=== PATIENT | female | born 1990 | race African-American/Black ===

== ENCOUNTER 2020-04-01 08:46 | Outpatient (CLI) | payer OTHER, SELFPAY ==
--- NOTE | ~2020-04-01 | US_ITS ---
EXAMINATION: US pelvic complete w TV DATE: 04/01/2020 09:36 INDICATION: Irregular periods TECHNIQUE: Multiple transabdominal and endovaginal sonographic images of the pelvis were obtained. COMPARISON: None. FINDINGS: The uterus measures 8.8 x 4.0 x 5.8 cm. The endometrial complex measures 17 mm in thickness at the f undus where there is a 7 mm round fluid collection which could represent a gestational sac which util izing mean diameter would yield an estimated gestational age of 5 weeks and 2 days. There appears be a double decidua sign but no evident yolk sac or pole for definitive determination. Distal to t he suspected gestational sac the endometrial complex measures up to 4 mm in thickness. The right ovar y measures 2.6 x 1.9 x 1.9 cm. The left ovary measures 2.8 x 2.8 x 2.5 cm cm. There is a 1.6 similar cyst, possibly a corpus luteum cyst in the left ovary. Vascular flow identified at both ovaries on co aidee Doppler. There is no free fluid in the pelvis. IMPRESSION: 1. 7 mm likely gestational sac without evident yolk sac or pole suggestive of an early pregnanc y with likely corresponding corpus luteum cyst in the left ovary. Correlate with beta hCG levels. Reviewed, dictated and finalized at location A. IMPRESSION: 1. 7 mm likely gestational sac without evident yolk sac or pole suggestiv e of an early with likely corresponding corpus luteum cyst in the lef t ovary. Correlate with beta hCG levels.
== END 2020-04-01 08:47 | disposition home or self-care (01) ==
PROVIDERS: PCP Nurse Practitioner Family; Visit Provider Obstetrics & Gynecology
DX: Z34.90 Encounter for supervision of normal pregnancy, unspecified, unspecified trimester (principal); N92.6 Irregular menstruation, unspecified
CPT/HCPCS: 36415; 76830; 76856; 84702

== ENCOUNTER 2020-04-03 10:40 | Outpatient (CLI) | payer OTHER, SELFPAY | END 2020-04-03 10:41 | disposition home or self-care (01) | PROVIDERS: PCP Nurse Practitioner Family; Visit Provider Obstetrics & Gynecology | DX: Z34.90 Encounter for supervision of normal pregnancy, unspecified, unspecified trimester (principal) | CPT/HCPCS: 36415; 84702 ==

== ENCOUNTER 2020-04-18 10:19 | Outpatient (CLI) | payer OTHER, SELFPAY ==
--- NOTE | ~2020-04-18 | US_ITS ---
EXAMINATION: US OB <= 14 weeks fetus DATE: 04/18/2020 10:58 INDICATION: First trimester dating TECHNIQUE: Real-time pelvic transabdominal and transvaginal ultrasound was performed. COMPARISON: 04/01/2020 FINDINGS: The uterus measures 9.3 x 6.5 x 5.2 cm. There is an intrauterine gestational sac. A yolk s ac is identified. heart motion is identified measuring 141 beats per minute (bpm) by M-mode Dop pler. The crown rump length measures 1.4 cm , which correlates with an estimated gestational ag e of 7 weeks and 6 day(s) (+/-) 4 day(s). The right ovary measures 3.0 x 1.9 x 2.0 cm. The left ovary measures 4.7 x 3.2 x 3.7 cm. There is nor mal vascular flow in the ovaries. There is no free fluid in the pelvis. IMPRESSION: 1. Live intrauterine with an estimated gestational age of 7 weeks and 6 day(s) (+/-) 4 day( s) and an estimated delivery date of 11/29/2020. Reviewed, dictated and finalized at location A. IMPRESSION: 1. Live intrauterine with an estimated gestational age of 7 weeks and 6 day(s) (+/-) 4 day(s) and an estimated delivery date of 11/29/2020.
== END 2020-04-18 10:20 | disposition home or self-care (01) ==
LOC: ANHIMG 10:25
PROVIDERS: PCP Nurse Practitioner Family; Visit Provider Obstetrics & Gynecology
DX: Z34.90 Encounter for supervision of normal pregnancy, unspecified, unspecified trimester (principal)
CPT/HCPCS: 76801

== ENCOUNTER 2020-05-16 10:37 | Outpatient (CLI) | payer OTHER, MEDICAID, SELFPAY ==
--- NOTE | ~2020-05-16 | US_ITS ---
EXAMINATION: US OB <=14 wk fetus w TV DATE: 05/16/2020 11:15 INDICATION: Threatened . TECHNIQUE: Real-time transabdominal and transvaginal pelvic ultrasound was performed. COMPARISON: Ultrasound 04/18/2020 FINDINGS: TRANSABDOMINAL ULTRASOUND: The uterus measures 13.3 x 5.6 x 7.5 cm. TRANSVAGINAL ULTRASOUND: There is an intrauterine gestational sac. The crown rump length measur es 2.3 cm, which correlates with an estimated gestational age of 9 weeks and 0 day(s) (+/-) 6 day(s). heart motion is not identified by cine imaging or Doppler. The right ovary measures 3.4 x 1.3 x 1.8 cm. The left ovary measures 3.1 x 1.6 x 2.2 cm. There is no free fluid in the pelvis. IMPRESSION: 1. demise. Reviewed, dictated and finalized at location A. IMPRESSION: 1. demise.
== END 2020-05-16 10:38 | disposition home or self-care (01) ==
PROVIDERS: PCP Nurse Practitioner Family; Visit Provider Obstetrics & Gynecology
DX: O02.1 Missed abortion (principal); Z3A.00 Weeks of gestation of pregnancy not specified
CPT/HCPCS: 76801; 76817

== ENCOUNTER 2020-05-21 00:09 | Outpatient (CLI) | payer OTHER, MEDICAID, SELFPAY ==
[2020-05-21 18:55] LABS: SARS-CoV-2 RNA PCR Negative
== END 2020-05-21 00:10 | disposition home or self-care (01) ==
LOC: ANHCOVIDDT 00:09
PROVIDERS: Visit Provider Obstetrics & Gynecology
DX: Z01.818 Encounter for other preprocedural examination (principal); Z11.59 Encounter for screening for other viral diseases
CPT/HCPCS: 87635; C9803; U0003

== ENCOUNTER 2020-05-23 01:47 | Day surgery (SDC) | payer OTHER, MEDICAID, SELFPAY ==
[2020-05-20 10:46] VITALS: BMI 32.3
--- NOTE | 2020-05-20 11:49 | P.HP_ITS ---
H&P: HPI History of Present Illness Chief complaint: Missed AB Narrative: Zeinab Dominique is a 29 year old female initially presented to clinic for routine OB visit. Denies any abdominal pain or vaginal bleeding. heart tones could not be detected in office and an US was obtained which confirmed missed of 9 week gestation. [facility] Past Medical History Medical History Back pain Shoulder pain Social History Social History Smoking status: Light tobacco smoker Smoking end date: 11/29/15 Alcohol intake: current Meds Home Medications and Allergies Home Medications Medication Instructions Recorded Confirmed Type cyclobenzaprine 5 mg tablet 5 mg PO TID PRN #20 tablet 10/20/19 05/20/20 Rx naproxen 500 mg tablet 500 mg PO BID PRN #30 tablet 10/20/19 05/20/20 Rx albuterol sulfate 90 mcg/actuation 1 inhalation INHALATION Q4H PRN 02/28/20 05/20/20 Rx aerosol inhaler #6.7 gm Allergies Allergy/AdvReac Type Severity Reaction Status Date / Time No Known Allergies Allergy Unknown Verified 05/20/20 10:46 Exam Const: General: comfortable and no acute distress Resp: Effort & Inspection: normal respiratory effort Auscultation: clear to auscultation bilaterally Cardio: Rate: regular rate Rhythm: regular rhythm GI: Inspection: non-distended GI Palp: Yes Soft to palpation and No Tenderness to palpation present (GI) Psych: Mental Status: mental status grossly normal Affect: normal affect Assessment and Plan Assessment and plan (1) Missed : Code(s): O02.1 - Missed Status: Acute Assessment and Plan: Risks, benefits, and alternatives to management discussed. Patient would like to proceed with surgical management with suction D&C.
--- NOTE | 2020-05-22 13:17 | WPDANESEPPF ---
Anes - Initial Pre Proc Eval Procedure: Operation Date: 05/23/20 12:00 Proposed Procedures p Suction Dilation And Curettage - Drake Grajeda DO Date/Time: 05/22/20 13:17 Surgeon: Drake Grajeda DO Pre Op Diagnosis: Missed AB Patient Data Age: 29 Gender: F Height: 1.68 m Weight: 90.72 kg Allergies Allergy/AdvReac Type Severity Reaction Status Date / Time No Known Allergies Allergy Unknown Verified 05/23/20 09:58 Home Medications Medication Instructions Recorded Confirmed Type cyclobenzaprine 5 mg tablet 5 mg PO TID PRN #20 tablet 10/20/19 05/23/20 Rx naproxen 500 mg tablet 500 mg PO BID PRN #30 tablet 10/20/19 05/23/20 Rx albuterol sulfate 90 mcg/actuation 1 inhalation INHALATION Q4H PRN 02/28/20 05/23/20 Rx aerosol inhaler #6.7 gm Patient hx anesthesia problems: none Family hx anesthesia problems: none [facility] Past Medical History Medical History (Updated 05/22/20 @ 13:18 by Delfin Tejada MD) Asthma Back pain BMI 34.0-34.9,adult Obesity Shoulder pain Social History Social History Smoking status: Light tobacco smoker Smoking end date: 11/29/15 Alcohol intake: current Anes - Eval Final PreProcedure Day of Procedure 05/22/20 13:17 Patient weight: obese Heart: regular rate and rhythm Lungs: clear to auscultation and normal air movement Airway: Mallampati scale class II Neurological: alert and oriented Last oral intake: >/= 8 hours ASA classification: II Emergent: no Anesthetic plan: proceed Anesthesia type and monitoring: general GIVS and LMA Informed Consent: The patient's anesthetic plan and its attendant risks and benefits were discussed with the patient/family/POA. Questions were solicited and answers provided to the satisfaction of the patient/family/POA.
[2020-05-23] MEDS: LACTATED RINGERS 1,000 ML 30 ML IV CONT (10:20)
[2020-05-23 10:35] VITALS: BP 93/52; PULSE 69; RESP 16; TEMP 36.7; O2SAT 98
--- NOTE | 2020-05-23 11:45 | WPDHPUPDATE1 ---
History and Physical Update Update Date/Time: 05/23/20 11:45 History and Physical has been reviewed, including an updated exam of the patient. There are NO changes in the patient's condition. Risks, benefits, and alternatives have been discussed and questions answered. Patient agrees to proceed with procedure.
[2020-05-23] MEDS: LIDOCAINE HCL 1% LOCAL INJ 20 ML VIAL INFILTRATE (12:20)
[2020-05-23] MEDS: KETOROLAC 30 MG/ML VIAL (*BKC) IV PUSH (12:35)
[2020-05-23 12:40] VITALS: BP 113/74; PULSE 74; RESP 20; O2SAT 94
[2020-05-23 13:05] VITALS: BP 113/71; PULSE 68; RESP 16; O2SAT 98
[2020-05-23 13:35] VITALS: BP 110/71; PULSE 55; RESP 16
[2020-05-23 14:10] VITALS: BP 117/77; PULSE 68; RESP 16
--- NOTE | 2020-05-23 15:10 | OP_ITS ---
DATE OF PROCEDURE: 05/23/2020 PROCEDURE: Suction D and C. PREOPERATIVE DIAGNOSIS: Missed . POSTOPERATIVE DIAGNOSIS: Missed . ANESTHESIA: General sedation. ESTIMATED BLOOD LOSS: 100 mL. FINDINGS: Products of conception. SPECIMEN: Products of conception sent to pathology. COMPLICATIONS: None apparent. BRIEF HISTORY: A 29-year-old recently diagnosed with missed approximate gestational age is 9 weeks. Risks, benefits, and alternatives discussed with the patient. The patient opted to proceed with surgical management with D and C. DESCRIPTION OF PROCEDURE: Once the patient was moved to the OR room, she was moved over to the OR table. After adequate anesthesia was established, the patient's legs were placed in stirrups for support. Vagina and perineum were prepped with Betadine. She was draped in the usual sterile fashion. A time-out was performed to identify the correct patient and procedure. A speculum was inserted into the vagina. Cervix was visualized. The anterior lip was grasped using a single-tooth tenaculum. Local anesthetic with lidocaine was injected at 7 minutes at 4 o'clock aspect of the cervical vaginal junction. At this time, the uterus was sounded and sounded to 11 cm. The cervix was dilated systematically. A 9 mm suction curette was inserted. Suction was turned on. Several passes of the curette were performed until the uterus was felt to be empty. Products of conception were obtained At this point, this concluded the procedure. All instrumentation was removed from the uterus and the vagina. Single-tooth tenaculum site was checked for hemostasis. Hemostasis was obtained using pressure. All sponge and instrument counts were correct at the end the procedure, and the patient was transferred to the recovery room in stable condition. Emily I MT: Ruthie
== END 2020-05-23 14:39 | disposition home or self-care (01) ==
PROVIDERS: PCP Nurse Practitioner Family; Visit Provider Obstetrics & Gynecology
PROC: (CPT 59820; principal; 2020-05-23 12:00)
DX: O02.1 Missed abortion (principal)
CPT/HCPCS: 59820; 36415; 85461; 88305; A9270; J1885; J2250; J2704; J3010; J7120

== ENCOUNTER 2020-07-27 01:09 | Outpatient (CLI) | payer OTHER, SELFPAY ==
[2020-07-27 19:30] LABS: SARS-CoV-2 RNA PCR Negative
== END 2020-07-27 01:10 | disposition home or self-care (01) ==
LOC: ANHCOVIDDT 01:09
PROVIDERS: PCP Nurse Practitioner Family; Visit Provider Surgery Plastic and Reconstructive Surgery
DX: Z01.812 Encounter for preprocedural laboratory examination (principal); Z11.59 Encounter for screening for other viral diseases
CPT/HCPCS: 87635; C9803; U0003

== ENCOUNTER 2020-07-30 01:21 | Day surgery (SDC) | payer OTHER, SELFPAY ==
[2020-07-17 14:49] VITALS: BMI 37.1
--- NOTE | 2020-07-29 09:17 | WPDANESEPP ---
Anes - Eval Pre Procedure Procedure: Operation Date: 07/30/20 08:30 Proposed Procedures p Bilateral Reduction Mammoplasty - Ranjan Mehta MD Date/Time: 07/29/20 09:17 Pre Op Diagnosis: Macromastia Patient Data Age: 29 Gender: F Height: 1.68 m Weight: 104.33 kg Allergies Allergy/AdvReac Type Severity Reaction Status Date / Time amoxicillin AdvReac yeast Verified 07/17/20 14:50 infection Home Medications Medication Instructions Recorded Confirmed Type naproxen 500 mg tablet 500 mg PO BID PRN #30 tablet 10/20/19 07/17/20 Rx albuterol sulfate 90 mcg/actuation 1 inhalation INHALATION Q4H PRN 02/28/20 07/17/20 Rx aerosol inhaler #6.7 gm docusate sodium 100 mg capsule 100 mg PO BID #14 cap 07/17/20 07/17/20 Rx hydrocodone 5 mg-acetaminophen 325 1 tablet PO Q6H PRN #15 tablet 07/17/20 07/17/20 Rx mg tablet ondansetron HCl 4 mg tablet 4 mg PO Q6H PRN #30 tablet 07/17/20 07/17/20 Rx Patient hx anesthesia problems: none Family hx anesthesia problems: none PMFSH Past Medical History Medical History Asthma Back pain BMI 34.0-34.9,adult Obesity Shoulder pain Social History Social History Smoking status: Former smoker Tobacco type: cigars Smoking end date: 11/29/15 Additional smoking assessment comments: QUIT CIGAR/WEEK Alcohol intake: current Drinks per week: 1 Spiritual care concerns: No Exam Day of Procedure 07/29/20 09:17
[2020-07-30] VITALS (11 sets, daily range): BP systolic 113–131; BP diastolic 65–87; PULSE 45–68; RESP 16–26; TEMP 36.1–36.6; O2SAT 97–100
--- NOTE | 2020-07-30 06:53 | WPDHPUPDATE1 ---
History and Physical Update Update Date/Time: 07/30/20 06:53 History and Physical has been reviewed, including an updated exam of the patient. There are NO changes in the patient's condition. Risks, benefits, and alternatives have been discussed and questions answered. Patient agrees to proceed with procedure.
[2020-07-30 06:59] LABS: Urine Cotinine NEGATIVE
[2020-07-30] MEDS: LACTATED RINGERS 1,000 ML 30 ML IV CONT ×2 (07:00→11:46)
--- NOTE | 2020-07-30 07:14 | P.PNAN_ITS ---
Anes - Eval Final PreProcedure Day of Procedure 07/30/20 07:14 Patient weight: obese Heart: regular rate and rhythm Lungs: clear to auscultation Airway: Mallampati scale class 1 Neurological: alert and oriented Last oral intake: >/= 8 hours ASA classification: II Emergent: no Anesthetic plan: proceed Anesthesia type and monitoring: general ETT and standard monitoring Informed Consent: The patient's anesthetic plan and its attendant risks and bene fits were discussed with the patient/family/POA. Questions were solicited and answers provided to the satisfaction of the patient/family/POA.
[2020-07-30] MEDS: ceFAZolin 2 GM/D5W 50 ML 2 GM/50 ML BAG IVPB (08:35)
--- NOTE | 2020-07-30 10:42 | SUR.OPER ---
EBL:50cc
--- NOTE | 2020-07-30 11:42 | PM.PROC ---
Procedure Note - Detailed Date of procedure: 07/30/20 Pre-op diagnosis: Macromastia Post-op diagnosis: same Procedure performed: Bilateral breast reduction Description of procedure: She is here today for bilateral breast reduction. Previously and again today the risks, benefits, alternatives were discussed in extensive detail. I wanted her to be very realistic about the risks involved as well as expectations. We discussed aftercare and what to monitor for. She understands we can never guarantee final breast size and there will always be asymmetry. I was very upfront and honest about the risks of sensation change and even nipple loss (). Made sure answered all of her questions to her satisfaction today and consent was obtained. She was marked in the preoperative holding area with their verification. The patient was taken to the operating room placed supine on the operating table. Anesthesia was provided by anesthesiology. She was prepped and draped in a standard sterile fashion. A surgical time-out was taken. Stab incisions were made and I tumessed with a tumescent solution. I marked out the nipple-areolar complex at 42 mm. I then de-epithelialized the pedicle. The pedicle was well left well more than 2 cm in thickness. I then removed the inferior portion of the breast as well as the central keel to get shape based on preoperative planning. At this point copiously irrigated with saline solution and verified a strict hemostasis. I reapproximated the pillars using a 2-0 PDS as well as along the IMF. I tailor tacked the breast into place with monika. She was placed in a sitting position. I verified the nipple-areolar complex position based on preoperative markings, intraoperative measurements, and observation which were in full agreement. This nipple-areolar complex was marked at 42 mm in size. I then placed supine and de-epithelialized this. Nipple-areolar complex was inset with 3-0 Monocryl. I closed the vertical incision with 3-0 Monocryl in the IMF with 3-0 stratafix. Then everything was closed using a running subcuticular 4-0 Monocryl followed by Steri-Strips. A dressing was placed followed by surgical bra. Patient was awoke and taken to PACU without difficulty. All instrument sponge counts were correct at the end of the case. Anesthesia: GLMA Surgeon: Ranjan Mehta MD Estimated blood loss (mL): 40 Drains: No Packing: No Pathology: yes (Breast tissue) Complications: No immediate complications Condition: stable Disposition: PACU Findings: Removed Right: 1133.3 grams Left: 1114.8 grams
[2020-07-30] MEDS: ONDANSETRON INJ 4 MG/2 ML VIAL IV PUSH (13:21)
== END 2020-07-30 15:10 | disposition home or self-care (01) ==
PROVIDERS: PCP Nurse Practitioner Family; Visit Provider Surgery Plastic and Reconstructive Surgery
PROC: 0HBV0ZZ Excision of Bilateral Breast, Open Approach (ICD-10-PCS; CPT 19318; principal; 2020-07-30 08:30)
DX: N62 Hypertrophy of breast (principal); N60.22 Fibroadenosis of left breast; N60.21 Fibroadenosis of right breast; N60.32 Fibrosclerosis of left breast; N60.31 Fibrosclerosis of right breast; J45.909 Unspecified asthma, uncomplicated; E66.9 Obesity, unspecified; Z68.37 Body mass index [BMI] 37.0-37.9, adult; F17.200 Nicotine dependence, unspecified, uncomplicated; Z79.51 Long term (current) use of inhaled steroids; Z79.899 Other long term (current) drug therapy
CPT/HCPCS: 19318; 80307; 88305; A9270; J0171; J0690; J1100; J2250; J2405; J2704; J3010; J7120

== ENCOUNTER 2020-08-21 09:28 | Outpatient (CLI) | payer OTHER, SELFPAY ==
[2020-08-21 18:39] LABS: SARS-CoV-2 RNA PCR Negative
== END 2020-08-21 09:29 | disposition home or self-care (01) ==
LOC: ANHCOVIDDT 09:28
PROVIDERS: PCP Nurse Practitioner Family; Visit Provider Surgery Plastic and Reconstructive Surgery
DX: Z01.812 Encounter for preprocedural laboratory examination (principal); Z11.59 Encounter for screening for other viral diseases
CPT/HCPCS: 87635; C9803; U0003

== ENCOUNTER 2020-08-22 02:16 | Day surgery (SDC) | payer OTHER, SELFPAY ==
[2020-08-21 10:46] VITALS: BMI 37.1
[2020-08-22 09:52] VITALS: BP 105/65; PULSE 66; RESP 16; TEMP 36.6; O2SAT 100
[2020-08-22] MEDS: LACTATED RINGERS 1,000 ML 30 ML IV CONT (10:20)
--- NOTE | 2020-08-22 10:41 | P.PNAN_ITS ---
Anes - Eval Final PreProcedure Day of Procedure 08/22/20 10:41 Patient weight: obese Heart: regular rate and rhythm Lungs: clear to auscultation Airway: Mallampati scale class II Neurological: alert and oriented Last oral intake: >/= 8 hours ASA classification: II Emergent: no Anesthetic plan: proceed Anesthesia type and monitoring: general LMA and standard monitoring Informed Consent: The patient's anesthetic plan and its attendant risks and todd efits were discussed with the patient/family/POA. Questions were solicited and answers provided to the satisfaction of the patient/family/POA.
--- NOTE | 2020-08-22 11:05 | WPDHPUPDATE1 ---
History and Physical Update Update Date/Time: 08/22/20 11:05 History and Physical has been reviewed, including an updated exam of the patient. There are NO changes in the patient's condition. Risks, benefits, and alternatives have been discussed and questions answered. Patient agrees to proceed with procedure.
--- NOTE | 2020-08-22 11:24 | PM.PROC ---
Procedure Note - Detailed Date of procedure: 08/22/20 Pre-op diagnosis: Left Breast Hematoma Post-op diagnosis: same Procedure performed: Washout left breast Description of procedure: Patient was marked in the preoperative holding area with her verification. She was taken to the operating room placed supine on the operating room table. Anesthesia was provided by anesthesiology and prepped and draped in a standard sterile fashion. 1% lidocaine and 0.25% Marcaine with epinephrine was used anesthetize as a field block. Fifteen blade used to make an incision on IMF. Dissection was continued until the space was identified. I copiously irrigated with 3 L of saline containing solution on TUR tubing. Small amount of purulence identified medial aspect. Opened all areas to ensure complete washout. Closed using 2-0 Vicryl followed by 3-0 Monocryl in a running subcuticular 4-0 Monocryl and tissue glue. At T junction of IMF packed with 1/2 iodoform. She tolerated well. Anesthesia: GLMA Surgeon: Ranjan Mehta MD Estimated blood loss (mL): 5 Drains: No Packing: Yes (1/2 Iodoform) Pathology: yes (Cultures) Complications: No immediate complications Condition: stable Disposition: PACU Findings: Small volume purulence medial left breast. Cultures t gregoria.
[2020-08-22] MEDS: ceFAZolin 2 GM/D5W 50 ML 2 GM/50 ML BAG IVPB (11:25)
[2020-08-22] MEDS: LIDO 1%/EPINEPHRINE 1:100,000 20 ML VIAL 40 ML INFILTRATE (12:03)
[2020-08-22 12:19] VITALS: BP 113/69; PULSE 105; RESP 16
[2020-08-22 12:49] VITALS: BP 116/74; PULSE 78; RESP 16
[2020-08-22 13:19] VITALS: BP 122/74; PULSE 69; RESP 16
[2020-08-22 13:49] VITALS: BP 123/80; PULSE 65; RESP 16
[2020-08-22 14:15] VITALS: BP 120/74; PULSE 59; RESP 16
== END 2020-08-22 14:25 | disposition home or self-care (01) ==
PROVIDERS: Visit Provider Surgery Plastic and Reconstructive Surgery
PROC: (CPT 10140; principal; 2020-08-22 11:30)
DX: L76.34 Postprocedural seroma of skin and subcutaneous tissue following other procedure (principal); Y83.8 Other surgical procedures as the cause of abnormal reaction of the patient, or of later complication, without mention of misadventure at the time of the procedure; E66.9 Obesity, unspecified; Z68.34 Body mass index [BMI] 34.0-34.9, adult; Z87.891 Personal history of nicotine dependence
CPT/HCPCS: 10140; 87070; 87075; 87205; A9270; J0690; J2250; J2405; J2704; J3010; J7120

== ENCOUNTER → 2021-02-28 13:51 | Outpatient (CLI) | payer OTHER, MEDICAID, SELFPAY ==
--- NOTE | ~2021-02-28 | US_ITS ---
EXAMINATION: US OB <= 14 weeks fetus DATE: 02/28/2021 14:19 INDICATION: Irregular menstruation. TECHNIQUE: Real-time transabdominal pelvic ultrasound was performed. COMPARISON: Ultrasound 05/16/2020 FINDINGS: The uterus measures 9.9 x 5.9 x 6.6 cm. There is an intrauterine gestational sac. A yolk sac is ident ified. The crown rump length measures 1.6 cm, which correlates with an estimated gestational a ge of 8 weeks and 0 day(s) (+/-) 5 day(s). heart motion is identified measuring 153 beats per m inute (bpm) by M-mode Doppler. The right ovary measures 3.4 x 1.6 x 3.1 cm. The left ovary is not vis ualized. There is no free fluid in the pelvis. IMPRESSION: 1. Single living intrauterine gestation with estimated date of delivery of 10/10/2021. Reviewed, dictated and finalized at location A. IMPRESSION: 1. Single living intrauterine gestation with estimated date of delivery of 10/2021.
== END ==
PROVIDERS: Visit Provider Obstetrics & Gynecology
DX: N92.5 Other specified irregular menstruation (principal); Z3A.08 8 weeks gestation of pregnancy
CPT/HCPCS: 76801

== ENCOUNTER 2021-03-29 01:43 | Emergency (ER) | payer MEDICAID, SELFPAY ==
[2021-03-29 01:45] VITALS: BP 112/61; PULSE 92; RESP 18; TEMP 36; O2SAT 98
[2021-03-29 02:07] VITALS: BP 110/71; PULSE 83; RESP 18; TEMP 36.9; O2SAT 99
--- NOTE | 2021-03-29 02:51 | ED.FEMALEGU ---
HPI - Female Genitourinary General Chief complaint: Vaginal Bleeding Stated complaint: 12 weeks preg/ bleeding Time Seen by Provider: 03/29/21 01:52 History of Present Illness HPI Narrative: Patient is a 30-year-old female who presents ER with vaginal bleeding. Awoke from sleep and got up and had blood running down her leg after feeling a gush. Patient is [address] Padgett. She has a known IUP from an ultrasound at 8 weeks. Has not been having any previous vaginal bleeding or other complications. Patient is a . No abdominal pain or cramping at this time. Related Data Home Medications Medication Instructions Recorded Confirmed PNV cmb#95-ferrous fumarate-FA tablet PO 03/29/21 [] Allergies Allergy/AdvReac Type Severity Reaction Status Date / Time amoxicillin AdvReac yeast Verified 03/29/21 02:07 infection Review of Systems Review of Systems: All systems reviewed & are unremarkable except as noted in HPI and below Constitutional: Constitutional: Denies chills Comments: No fevers Gastrointestinal: Gastrointestinal: Denies abdominal pain, Denies nausea and Denies vomiting Genitourinary: Genitourinary: Reports abnormal vaginal bleeding, Denies nocturia and Denies dysuria [facility] Past Medical History Medical History (Updated 03/29/21 @ 05:02 by Buster Ho MD) Asthma Back pain BMI 34.0-34.9,adult Obesity Shoulder pain Social History Social History Smoking status: Former smoker Tobacco type: cigars Smoking end date: 11/29/15 Additional smoking assessment comments: QUIT 2014- SMOKED 1 CIGAR/WEEK Alcohol intake: current Drinks per week: 1 Spiritual care concerns: No Exam Narrative: Exam Narrative: GENERAL: Well-appearing, well-nourished, and in no acute distress. HEAD: Normocephalic, atraumatic. ENT: Mucous membranes moist. CHEST: Clear to auscultation. No respiratory distress. HEART: Regular rate and rhythm. Normal peripheral pulses. ABDOMEN: Soft, nontender, nondistended. Pelvic: Normal external genitalia, cervix closed and non tender. Small amount of old blood in the vagina. No active bleeding. No discharge. EXTREMITIES: Normal range of motion. No edema. SKIN: Warm, dry, no rash. NEURO: Alert and oriented x3. Course Course Emergency Course: Discussed case with Dr. Alan?. Recommends contacting their office on Wednesday to schedule follow-up. Bedside ultrasound here shows vigorous movement of the intrauterine with positive heartbeat. Patient is O+ and does not require RhoGam. Vital Signs Vital signs: Vital Signs Temperature 96.8 F L 03/29/21 01:45 Pulse Rate 92 03/29/21 01:45 Respiratory Rate 18 03/29/21 01:45 Blood Pressure 112/61 03/29/21 01:45 Pulse Oximetry 98 03/29/21 01:45 Temperature 98.4 F 03/29/21 02:07 Pulse Rate 83 03/29/21 02:07 Respiratory Rate 18 03/29/21 02:07 Blood Pressure 110/71 03/29/21 02:07 Pulse Oximetry 99 03/29/21 02:07 MDM - Female Genitourinary Lab Data Result diagrams: 03/29/21 02:53 03/29/21 02:53 Labs: Lab Results 03/29/21 03/29/21 03/29/21 Range/Units 02:53 02:53 02:54 WBC 10.3 H (4.5-10.0) K/mm3 RBC 3.94 L (4.2-5.4) M/mm3 Hgb 11.9 L (12.0-15.0) g/dL Hct 34.3 L (37.0-47.0) % MCV 87.1 (80-100) fl MCH 30.2 (26-34) pg MCHC 34.7 (32-36) g/dl RDW 12.6 (11.5-14.5) % Plt Count 206 (150-375) k/mm3 MPV 11.5 H (7.4-10.4) fl Immature Gran % (Auto) 0.8 H (0-0.5) % Neut % (Auto) 66.3 (45.5-73.1) % Lymph % (Auto) 25.6 (18.3-44.2) % [place] % (Auto) 6.4 (2.6-8.5) % Eos % (Auto) 0.6 (0-4.4) % Baso % (Auto) 0.3 (0.2-1.2) % Lymph # (Auto) 2.64 (0.9-3.2) K/mm3 [place] # (Auto) 0.7 H (0.1-0.6) K/mm3 Eos # (Auto) 0.1 (0-0.3) K/mm3 Baso # (Auto) 0.0 (0.0-0.1) K/mm3 Abs Immat Gran (aut
[2021-03-29 03:08] LABS: Basophils Percent Auto 0.3 % (0.2-1.2); Eosinophils Absolute Auto 0.1 K/mm3 (0-0.3); Eosinophils Percent Auto 0.6 % (0-4.4); Hematocrit 34.3 % (37.0-47.0); Hemoglobin 11.9 g/dL (12.0-15.0); Immature Granulocyte Absolute 0.08 K/mm3 (0.00-0.031); Immature Granulocyte Percent A 0.8 % (0-0.5); Lymphocytes Absolute Auto 2.64 K/mm3 (0.9-3.2); Lymphocytes Percent Auto 25.6 % (18.3-44.2); Mean Corpuscular HGB Conc 34.7 g/dl (32-36); Mean Corpuscular Hemoglobin 30.2 pg (26-34); Mean Corpuscular Volume 87.1 fl (80-100); Mean Platelet Volume 11.5 fl (7.4-10.4); Monocytes Absolute Auto 0.7 K/mm3 (0.1-0.6); Monocytes Percent Auto 6.4 % (2.6-8.5); Neutrophils Absolute Auto 6.9 K/mm3 (1.3-6.7); Neutrophils Percent Auto 66.3 % (45.5-73.1); Platelet Count Result 206 k/mm3 (150-375); Red Blood Count 3.94 M/mm3 (4.2-5.4); Red Cell Distribution Width 12.6 % (11.5-14.5); White Blood Count 10.3 K/mm3 (4.5-10.0)
[2021-03-29 03:14] LABS: Anion Gap 2 mmol/L (8-16); Blood Urea Nitrogen 5 mg/dL (7-17); Calcium 8.7 mg/dL (8.4-10.2); Carbon Dioxide 29 mmol/L (22-30); Chloride 104 mmol/L (98-107); Estimated CRCL calculation 123 ml/min; Estimated Glomerular Filt Rate > 60; Glucose 95 mg/dL (65-105); Potassium 3.6 mmol/L (3.4-5.0); Sodium 135 mmol/L (137-145)
[2021-03-29 05:06] VITALS: BP 105/65; PULSE 78; RESP 18; O2SAT 100
== END 2021-03-29 05:21 | disposition home or self-care (01) ==
PROVIDERS: Emergency Provider Emergency Medicine
DX: O20.0 Threatened abortion (principal); O99.512 Diseases of the respiratory system complicating pregnancy, second trimester; J45.909 Unspecified asthma, uncomplicated; O99.212 Obesity complicating pregnancy, second trimester; E66.9 Obesity, unspecified; Z87.891 Personal history of nicotine dependence; Z3A.12 12 weeks gestation of pregnancy
CPT/HCPCS: 36415; 80048; 84702; 85025; 85461; 99283

== ENCOUNTER 2021-05-15 23:10 | Emergency (ER) | payer OTHER, SELFPAY ==
[2021-05-15 23:16] VITALS: BP 113/79; PULSE 68; RESP 16; TEMP 36.8; O2SAT 100
[2021-05-15 23:18] VITALS: PULSE 67; RESP 18; O2SAT 100
[2021-05-15 23:22] VITALS: BP 113/79; PULSE 62; PULSE 69; RESP 22; O2SAT 100
--- NOTE | 2021-05-15 23:23 | ECG_ITS ---
Measurements Intervals [place] Rate: 65 P: 37 [place]: 175 QRS: 43 QRSD: 94 T: 1 QT: 405 QTc: 422 Interpretive Statements SINUS RHYTHM BORDERLINE ST-T WAVE ABNORMALITY- INFERIOR LEADS BORDERLINE ECG Electronically Signed On 05-16-2021 6:58:37 CDT by Russel King D.O.
[2021-05-15 23:30] VITALS: PULSE 70; RESP 18; O2SAT 98
[2021-05-15 23:31] VITALS: BP 104/65; PULSE 64; RESP 16
[2021-05-15 23:45] LABS: Basophils Percent Auto 0.3 % (0.2-1.2); Eosinophils Percent Auto 0.3 % (0-4.4); Hematocrit 35.4 % (37.0-47.0); Hemoglobin 12.3 g/dL (12.0-15.0); Immature Granulocyte Absolute 0.04 K/mm3 (0.00-0.031); Immature Granulocyte Percent A 0.6 % (0-0.5); Lymphocytes Absolute Auto 1.81 K/mm3 (0.9-3.2); Lymphocytes Percent Auto 29.2 % (18.3-44.2); Mean Corpuscular HGB Conc 34.7 g/dl (32-36); Mean Corpuscular Hemoglobin 29.5 pg (26-34); Mean Corpuscular Volume 84.9 fl (80-100); Mean Platelet Volume 11.5 fl (7.4-10.4); Monocytes Absolute Auto 0.5 K/mm3 (0.1-0.6); Monocytes Percent Auto 7.4 % (2.6-8.5); Neutrophils Absolute Auto 3.9 K/mm3 (1.3-6.7); Neutrophils Percent Auto 62.2 % (45.5-73.1); Platelet Count Result 174 k/mm3 (150-375); Red Blood Count 4.17 M/mm3 (4.2-5.4); White Blood Count 6.2 K/mm3 (4.5-10.0)
--- NOTE | 2021-05-15 23:45 | ED.GENADULT ---
HPI - General Adult General Chief complaint: Weakness Stated complaint: dizziness, lightheaded weak fatigue, 5 months preg Time Seen by Provider: 05/15/21 23:19 History of Present Illness HPI narrative: Patient 30-year-old female presents the emergency department with chief complaint of lightheadedness. The patient reports she is approximately 20 weeks followed by OB and reports this is her second . The patient states that she has been having nausea and vomiting and not really been able to eat much over the last several weeks. The patient states that she has been getting lightheaded particular whenever she gets up and walks and feels extremely weak. Patient denies chest pain denies shortness of breath denies abdominal pain denies vaginal discharge or vaginal bleeding. Related Data Home Medications Medication Instructions Recorded Confirmed PNV cmb#95-ferrous fumarate-FA tablet PO 03/29/21 [] Allergies Allergy/AdvReac Type Severity Reaction Status Date / Time amoxicillin AdvReac yeast Verified 03/29/21 02:07 infection Review of Systems Review of Systems: Narrative: A 10 system review of systems was completed on the patient and is negative except for what is stated in the HPI. Nursing and ancillary documentation was reviewed. [facility] Past Medical History Medical History (Updated 05/16/21 @ 01:24 by Sherwin Gu MD) Asthma Back pain BMI 34.0-34.9,adult Obesity Shoulder pain Social History Social History Smoking status: Former smoker Tobacco type: cigars Smoking end date: 11/29/15 Additional smoking assessment comments: QUIT 2014- SMOKED 1 CIGAR/WEEK Alcohol intake: current Drinks per week: 1 Spiritual care concerns: No Exam Narrative: Exam Narrative: GENERAL: Well-appearing, well-nourished, and in no acute distress. HEAD: Normocephalic, atraumatic. EYES: PERRLA and EOMI. ENT: Nares clear, no rhinorrhea or epistaxis. Mucous membranes moist. NECK: Supple. CHEST: Clear to auscultation. No respiratory distress. HEART: Regular rate and rhythm. No murmur heard. Normal peripheral pulses. ABDOMEN: Soft, nontender, nondistended, normal active bowel sounds. EXTREMITIES: Normal range of motion. No edema. SKIN: Warm, dry, no rash. NEURO: No focal deficits. Alert and oriented x3. PSYCH: Normal mood and affect. Course Vital Signs Vital signs: Vital Signs Temperature 36.8 C 05/15/21 23:16 Pulse Rate 68 05/15/21 23:16 Respiratory Rate 16 05/15/21 23:16 Blood Pressure 113/79 05/15/21 23:16 Pulse Oximetry 100 05/15/21 23:16 Temperature 36.8 C 05/15/21 23:16 Pulse Rate 73 05/16/21 00:45 Respiratory Rate 23 H 05/16/21 00:45 Blood Pressure 104/65 05/15/21 23:31 Pulse Oximetry 100 05/16/21 00:00 Medical Decision Making Vital Signs Vital Signs: Vital Signs Temperature 36.8 C 05/15/21 23:16 Pulse Rate 68 05/15/21 23:16 Respiratory Rate 16 05/15/21 23:16 Blood Pressure 113/79 05/15/21 23:16 Pulse Oximetry 100 05/15/21 23:16 Temperature 36.8 C 05/15/21 23:16 Pulse Rate 73 05/16/21 00:45 Respiratory Rate 23 H 05/16/21 00:45 Blood Pressure 104/65 05/15/21 23:31 Pulse Oximetry 100 05/16/21 00:00 Lab Data Result diagrams: 05/15/21 23:39 05/15/21 23:39 Labs: Lab Results 05/15/21 05/15/21 05/15/21 Range/Units 23:39 23:39 23:55 WBC 6.2 (4.5-10.0) K/mm3 RBC 4.17 L (4.2-5.4) M/mm3 Hgb 12.3 (12.0-15.0) g/dL Hct 35.4 L (37.0-47.0) % MCV 84.9 (80-100) fl MCH 29.5 (26-34) pg MCHC 34.7 (32-36) g/dl RDW 13.0 (11.5-14.5) % Plt Count 174 (150-375) k/mm3 MPV 11.5 H (7.4-10.4) fl Immature Gran % (Auto) 0.6 H (0-0.5) % Neut % (Auto) 62.2 (45.5-73.1) % Lymph % (Auto) 29.2 (18.3-44.2) % Payne % (Auto) 7.4 (2.6-8.5) % Eos
[2021-05-15 23:53] VITALS: PULSE 71; RESP 14; O2SAT 100
[2021-05-15] MEDS: SODIUM CHLORIDE 0.9% IV 1,000 ML 999 ML IV CONT (23:53)
[2021-05-15] MEDS: METOCLOPRAMIDE HCL INJ 10 MG/2 ML VIAL IV PUSH (23:53)
[2021-05-15 23:55] LABS: Alanine Aminotransferase 58 U/L (4-35); Albumin Level 3.7 g/dL (3.5-5.1); Alkaline Phosphatase 74 U/L (38-126); Anion Gap 9 mmol/L (8-16); Aspartate Amino Transferase 53 U/L (14-36); Bilirubin,Total 0.1 mg/dL (0.2-1.3); Blood Urea Nitrogen 2 mg/dL (7-17); Calcium 9.2 mg/dL (8.4-10.2); Carbon Dioxide 22 mmol/L (22-30); Chloride 108 mmol/L (98-107); Estimated CRCL calculation 141 ml/min; Estimated Glomerular Filt Rate > 60; Glucose 84 mg/dL (65-105); Lipase 46 U/L (23-300); Magnesium 1.7 mg/dL (1.6-2.3); Potassium 3.3 mmol/L (3.4-5.0); Sodium 139 mmol/L (137-145)
[2021-05-16] VITALS: PULSE 96; RESP 20; O2SAT 100
[2021-05-16 00:06] LABS: Add Urine Microscopic? YES; Appearance Urine Cloudy (Clear); Bacteria Urine Trace /hpf; Bilirubin Urine Negative (Negative); Blood Urine Negative (Negative); Color Urine Yellow (Yellow); Glucose Urine UA Negative (Negative); Ketones Urine 1+ mg/dL (Negative); Leukocyte Esterase Ur Trace LEU/UL (Negative); Mucus Urine Rare /lpf; Nitrate Urine Negative (Negative); Protein Urine Negative (Negative); RBC Urine 0-2 /hpf (0-2); Specific Grav Ur 1.006 (1.001-1.035); Squamous Epithelial Cell Urine Few /hpf (Few); Urobilinogen Urine Negative mg/dL (<2.0)
[2021-05-16] MEDS: diphenhydrAMINE HCl INJ 50 MG/ML VIAL IV PUSH (00:11)
--- NOTE | 2021-05-16 00:11 | PC.NURSE ---
Pt has become restless after Reglan. Dr Conley notified and order received.
[2021-05-16 00:15] VITALS: PULSE 71; RESP 19
[2021-05-16 00:30] VITALS: PULSE 72; RESP 24
[2021-05-16 00:45] VITALS: PULSE 73; RESP 23
[2021-05-16] MEDS: SODIUM CHLORIDE 0.9% IV 1,000 ML 999 ML IV CONT (01:16)
[2021-05-16 03:20] VITALS: BP 121/72; PULSE 66; RESP 16; O2SAT 100
--- NOTE | 2021-05-16 03:38 | PC.NURSE ---
Refer to down time paper charting.
== END 2021-05-16 03:20 | disposition home or self-care (01) ==
PROVIDERS: Emergency Provider Emergency Medicine
DX: O99.282 Endocrine, nutritional and metabolic diseases complicating pregnancy, second trimester (principal); E86.0 Dehydration; R55 Syncope and collapse; O99.512 Diseases of the respiratory system complicating pregnancy, second trimester; J45.909 Unspecified asthma, uncomplicated; O99.211 Obesity complicating pregnancy, first trimester; E66.9 Obesity, unspecified; Z3A.20 20 weeks gestation of pregnancy; Z87.891 Personal history of nicotine dependence; R94.31 Abnormal electrocardiogram [ECG] [EKG]
CPT/HCPCS: 36415; 80053; 81001; 83690; 83735; 85025; 93005; 96361; 96374; 99284; J1200; J2765; J7030

== ENCOUNTER 2021-09-11 10:27 | Observation (INO) | payer OTHER, SELFPAY ==
[2021-09-11] VITALS (7 sets, daily range): BP systolic 107–123; BP diastolic 59–105; PULSE 79–95; RESP 22; TEMP 36.9–37.2; BMI 37.0
[2021-09-11] MEDS: TERBUTALINE SULFATE 1 MG/ML VIAL 0.25 MG SUB-Q ×2 (11:30→12:15)
--- NOTE | 2021-09-11 11:30 | OBADM ---
This patient, Zeinab Dominique, admitted to the OB room 115 at 1027 for observation for contractions. Patient/family oriented to hospital policies and general routines including ID bracelet, bed and alarms, visiting hours, pain management, procedures, bathroom and other care routines, personal items, smoking policy, room service/diet, and visiting hours. Patient/Family are encouraged to report perceived risks to care and to ask questions if they do not understand what they are told or what they should do.
[2021-09-11 12:35] LABS: Add Urine Microscopic? YES; Appearance Urine Clear (Clear); Bacteria Urine Trace /hpf; Bilirubin Urine Negative (Negative); Blood Urine Negative (Negative); Color Urine Straw (Yellow); Glucose Urine UA Negative (Negative); Ketones Urine Negative (Negative); Leukocyte Esterase Ur 3+ LEU/UL (Negative); Mucus Urine Rare /lpf; Nitrate Urine Negative (Negative); Protein Urine Negative (Negative); RBC Urine 0-2 /hpf (0-2); Specific Grav Ur 1.005 (1.001-1.035); Squamous Epithelial Cell Urine Rare /hpf (Few); Urobilinogen Urine Negative mg/dL (<2.0); WBC Urine 0-3 /hpf
--- NOTE | 2021-09-17 06:46 | P.PNOB_ITS ---
OB - Triage/Final Diagnosis Visit Information Reason for evaluation: threatened labor Comments/Additional reasons for admission: I have assessed the risk for this patient, Zeinab Dominique, and determined that she would benefit from observation care. Evaluation Laboratory results: Laboratory Tests 09/11/21 12:06 Urine Color Straw Urine Appearance Clear Urine pH 9.0 Ur Specific [place] 1.005 Urine Protein Negative Urine Glucose (UA) Negative Urine Ketones Negative Ur Blood (Man) Negative Urine Nitrate Negative Urine Bilirubin Negative Urine Urobilinogen Negative Leukocyte Esterase Rfl 3+ H Urine RBC 0-2 Urine WBC 0-3 Ur Squamous Epith Cells Rare Urine Bacteria Trace Urine Mucus Rare
== END 2021-09-11 14:28 | disposition home or self-care (01) ==
PROVIDERS: Admitting Provider Obstetrics & Gynecology; Visit Provider Obstetrics & Gynecology
DX: O47.03 False labor before 37 completed weeks of gestation, third trimester (principal); Z3A.35 35 weeks gestation of pregnancy
CPT/HCPCS: 81001; 84112; 96372; G0378; G0379; J3105

== ENCOUNTER 2021-10-03 06:06 | Inpatient (IN) | payer OTHER, SELFPAY ==
[2021-10-03] VITALS (57 sets, daily range): BP systolic 51–143; BP diastolic 23–109; PULSE 60–248; RESP 18; TEMP 36.4–37; O2SAT 94–100; BMI 36.3
--- NOTE | 2021-10-03 06:06 | LDADM ---
This patient, Zeinab Dominique, was admitted to Labor/Delivery/Recovery 104 on 10/03/21 at 06:06. Plans for labor, pain management and were discussed with patient. Patient/family oriented to hospital policies and general routines including ID bracelet, bed and alarms, visiting hours, pain management, procedures, bathroom and other care routines, personal items, smoking policy, room service/diet and guest tray routines, infant security routines, and visiting hours. Patient/Family are encouraged to report perceived risks to care and to ask questions if they do not understand what they are told or what they should do. See OBIX for further documentation.
[2021-10-03 07:12] LABS: Basophils Percent Auto 0.3 % (0.2-1.2); Eosinophils Percent Auto 0.4 % (0-4.4); Hematocrit 33.8 % (37.0-47.0); Hemoglobin 11.7 g/dL (12.0-15.0); Immature Granulocyte Absolute 0.03 K/mm3 (0.00-0.031); Immature Granulocyte Percent A 0.3 % (0-0.5); Lymphocytes Percent Auto 24.3 % (18.3-44.2); Mean Corpuscular HGB Conc 34.6 g/dl (32-36); Mean Corpuscular Hemoglobin 29.3 pg (26-34); Mean Corpuscular Volume 84.5 fl (80-100); Mean Platelet Volume 12.7 fl (7.4-10.4); Monocytes Absolute Auto 0.6 K/mm3 (0.1-0.6); Monocytes Percent Auto 6.9 % (2.6-8.5); Neutrophils Absolute Auto 6.1 K/mm3 (1.3-6.7); Neutrophils Percent Auto 67.8 % (45.5-73.1); Platelet Count Result 160 k/mm3 (150-375); Red Cell Distribution Width 13.6 % (11.5-14.5); White Blood Count 9.1 K/mm3 (4.5-10.0)
[2021-10-03] MEDS: LACTATED RINGERS 1,000 ML 125 ML IV CONT (07:25)
[2021-10-03] MEDS: OXYTOCIN 30 UNITS/NS 500 ML 30 UNITS/500 ML BAG IV CONT (07:26)
[2021-10-03] MEDS: ceFAZolin 2 GM/D5W 50 ML 2 GM/50 ML BAG IVPB (07:28)
[2021-10-03] MEDS: fentaNYL CITRATE INJ (*CRX) 100 MCG/2 ML VIAL 50 MCG IV PUSH (08:34)
[2021-10-03 09:08] LABS: Rapid Plasma Reagin Non-Reactive (NonReactive)
--- NOTE | 2021-10-03 11:15 | P.PCNOB_ITS ---
OB - Delivery Note Procedure Route of delivery: Episiotomy description: None Laceration Description: None Specimen: No Quantitative Blood Loss (ml): 300 Anesthesia type: Epidural Disposition: floor Narrative: Patient was prepped and draped in the usual. manner for this procedure. Baby girl delivered without difficulty cord clamped cut baby was passed off the operative field. Placenta delivered spontaneously and was well contracted. Cervix vagina vulva were inspected no lacerations or tears. At this point seizure was considered complete. [place] Baby Weeks of gestation at delivery: 39 Infant gender: Female Weight (pounds): 6 Weight (ounces): 13 presentation: vertex score one minute: 9 score five minutes: 9
--- NOTE | 2021-10-03 11:15 | WPDHPUPDATE1 ---
History and Physical Update Update Date/Time: 10/03/21 11:15 History and Physical has been reviewed, including an updated exam of the patient. There are NO changes in the patient's condition. Risks, benefits, and alternatives have been discussed and questions answered. Patient agrees to proceed with procedure.
--- NOTE | 2021-10-03 11:15 | WPDOBADMIT ---
Obstetrics - Admit Note Admission Note: record reviewed. No pertinent additions to the history and/or any subsequent changes in the physical findings that are not consistent with the expected course of the were found. Additions to the history and/or subsequent changes in the physical findings follow. None.
[2021-10-03] MEDS: OXYTOCIN 30 UNITS/NS 500 ML 30 UNITS/500 ML BAG 125 UNITS IV CONT (11:30)
--- NOTE | 2021-10-03 15:15 | PC.NURSE ---
Consult with pt., mother reports eagerly fed for first feeding. Infant now sleepy and not waking. Mother states she breastfed first child 6 years old. Infant is able flange both lips, frenulum appears to be slightly tight. . Skin is intact on both nipples, no redness and bruising noted. Reviewed infant feeding cues, frequencies, duration of feedings, feeding elimination flow sheet, and signs of adequate intake. Demonstrated stimulation techniques to wake for feeding. Assisted with to breast. Reviewed positioning/alignment in cross cradle, holding breast in ?U? hold and guided asymmetrical latch on. Reviewed rational for each. Infant remained sleepy and not waking for feeding. Advise to skin to skin up to 30 minutes then call out for assist. Nipple care reviewed of lanolin after feedings, warm compresses as needed. Instructed mother to call out for RN assistance if she is unable to latch after 30 minutes of skin to skin or any time she has difficulties or discomfort with feeding. Instructed feeding should be initiated three hours from start of last feeding or if feeding cues are noted before. Mother voiced understanding of information shared.
--- NOTE | 2021-10-03 16:40 | PC.NURSE ---
PT introductions made and plan of care discussed per post , pain management, breast /bottle feeding, daily care activities. PT and significant other both recipients of such instructions, PT received instructions per one to one discussion, mom baby care guide and demonstration. No barriers to learning identified at this time. PT verbalized understanding of such care.
[2021-10-03] MEDS: LANOLIN (LANSINOH) 7.5 GM CREAM 1 APPLIC TOPICAL (18:02)
[2021-10-03] MEDS: DOCUSATE SODIUM 100 MG CAPSULE PO (18:02)
[2021-10-03] MEDS: IBUPROFEN 600 MG TABLET PO (22:45)
[2021-10-03] MEDS: ACETAMINOPHEN 325 MG TABLET 650 MG PO (22:55)
[2021-10-04 04:46] LABS: Hematocrit 31.9 % (37.0-47.0)
[2021-10-04] MEDS: ACETAMINOPHEN 325 MG TABLET 650 MG PO ×3 (05:00→22:07)
[2021-10-04] MEDS: IBUPROFEN 600 MG TABLET PO ×3 (05:00→22:07)
--- NOTE | 2021-10-04 09:00 | PC.NURSE ---
Pt introductions made and plan of care discussed per post , breast feeding pain management and daily care activities. PT verbalized understanding of such care. PT received such instructions this shift per one to one to discussion, mom baby care guide and demonstrations. No barriers of learning identified.
[2021-10-04 11:00] VITALS: BP 126/61; PULSE 68; RESP 16; RESP 18; TEMP 36.4; O2SAT 99
--- NOTE | 2021-10-04 11:19 | WPDANLDPN2 ---
Anes-Prog Note L&D Date/Time: 10/04/21 11:19 Comfortable throughout: labor and delivery Neuraxial method: epidural Epidural/Spinal procedure site: clean & non-tender Neuro status: Neuro function grossly intact. Cardiovascular status: normal Respiratory status: normal Airway patency: baseline Mental status: baseline Post-Op hydration status: normal Vital Signs: Last Vital Signs Temp 98.2 F 10/03/21 19:29 Pulse 81 10/03/21 19:29 Resp 18 10/03/21 19:29 BP 109/50 L 10/03/21 19:29 Pulse Ox 99 10/03/21 19:29 Pain score (VAS): 0 I/O: Intake & Output 10/03/21 10/04/21 10/04/21 23:59 07:59 15:59 Intake Total 500 Balance 500 Post-procedural complaints: none Patient feedback: Patient satisfied with anesthetic care.
[2021-10-04] MEDS: DOCUSATE SODIUM 100 MG CAPSULE PO (11:34)
[2021-10-04] MEDS: MULTIVIT/MIN/PREN/FOL AC/IRON TABLET 1 TAB PO (11:34)
--- NOTE | 2021-10-04 12:03 | P.DS_ITS ---
DS: Admitting Diagnosis Discharge Date 10/05/2021 Admitting Diagnosis OB - DS: Summary OB Procedures : None OB Procedures Intrapartum: Spontaneous Vag Delivery OB Procedures: : None Time Spent with Patient Time attestation: Total time spent providing and/or coordinating discharge services: DS: Data Data Completed and Pending Labs on day of discharge: Labs from last 24 hours 10/04/21 04:33 Hgb 11.0 L Hct 31.9 L Discharge Plan Discharge Discharging Clinician: Dario Padgett Patient Disposition: Home, Self-Care Activity: as tolerated Diet: as tolerated Patient Instructions: Antibiotic Form Stand Alone Forms: General Discharge Information Follow-up/Referrals: Dario Padgett MD [Physician] - 3 Weeks Discharge Medications: New ibuprofen 600 mg Tablet 600 mg PO Q6H PRN (Reason: Cramping) Qty: 30 RF: 0 No Action No Home Medications RF: 0 Date of admission: 10/03/21 06:06 Primary Care Provider: PHYSICIAN,COMMUNICATIONS OFFICER Admitting Provider: Dario Padgett Attending physician on admission: Dario Padgett Condition: Stable
--- NOTE | 2021-10-04 17:38 | PC.NURSE ---
Nurse offered pt pain med about 1730 and pt stated she would take meds for intermittent cramping that she rated at a 5. Nurse gave mother an Ibuprofen 600mg and 2 Tylenol, 325mg each, and pt put them in a medicine cup on her bedside table in which there was a vitamin and a colace that pt was given this a.m. and had never taken. Nurse explained to pt that nurse needed to see her take the pain medication. Pt stated that she was not ready to take them at this time. Nurse agreed, but took the Ibuprofen and Tylenol away from the bedside. Pt agreed.
[2021-10-04 19:40] VITALS: BP 104/88; PULSE 76; RESP 18; TEMP 36.9; O2SAT 100
--- NOTE | 2021-10-05 01:02 | PC.NURSE ---
Daylight Savings Time For Daylight Savings Time Ending in the Fall - Clocks are moved back. For [facility], the time of change occurs at 0200 hrs. Time is taken from the oil prospecting observer. This entry on the patient's chart recognizes the change in time reflected during documentation. Example: 2 entries for vital signs may be charted for 0200 hrs.
[2021-10-05 08:00] VITALS: BP 116/75; PULSE 62; RESP 18; TEMP 36.4
[2021-10-05] MEDS: IBUPROFEN 600 MG TABLET PO (08:04)
[2021-10-06 08:00] VITALS: BP 125/71; PULSE 55; RESP 16; TEMP 36.9; O2SAT 99
--- NOTE | 2021-10-08 12:54 | PM.OBDSVD ---
DS: Admitting Diagnosis Discharge Date 10/05/21 Admitting Diagnosis OB - DS: Summary OB Procedures : None OB Procedures Intrapartum: Spontaneous Vag Delivery OB Procedures: : None Time Spent with Patient Time attestation: Total time spent providing and/or coordinating discharge services: Discharge Plan Discharge Discharging Clinician: Dario Padgett Patient Disposition: Home, Self-Care Activity: as tolerated Diet: as tolerated Discharge Instructions: Education: Mom and Baby Guide Given to: Mother Follow-Up: Call your delivering provider's office for an appointment to be seen in: 3 weeks Mom and baby should come to the [facility] for the follow-up appointment. Appointment Date/Time: October 06, 2021 at 8:00 am What to expect at your follow-up visit: Physical Assessment Call [phone] if you are unable to keep your appointment time. BREAST CARE: * Wear a snug supportive bra. * For engorgement discomfort: Breast Feeding: * Apply warm moist washcloths * Express milk as needed to relieve engorgement * Wear loose clothing * For sore nipples: * Identify correct latch-on * Apply warm moist washcloths before and after nursing * Air dry nipples after nursing * May apply Lansinoh cream to nipples PERINEAL CARE: * Until bleeding stops, use your arti bottle after urinating * Change your pad frequently throughout the day * No tub baths until seen by your physician - You may shower ACTIVITY: * Rest as much as possible. * Do not exercise or lift anything heavier than your baby (such as laundry or other children.) * Avoid stairs or driving as much as possible. * Do not put anything into the vagina. No douching, tampons, or sexual activity until seen by physician. NOTIFY PHYSICIAN IF YOU HAVE ANY QUESTIONS OR IF ANY OF THE FOLLOWING SYMPTOMS OCCUR: * If your perineum becomes red, swollen, or more painful than what you have experienced in the hospital. * If your vaginal bleeding becomes foul smelling. * If your vaginal bleeding becomes more heavy than a period or if your bleeding changes from pink to bright red. However, you may pass an occasional walnut-sized clot once or twice for the first week . * If you experience a sharp, shooting pain in you calves. * If you discover a hard, reddened area on your breast or if you experience flu-like symptoms. DIET: * Eat regular, well-balanced meals. * Drink plenty of fluids daily. If , drink to thirst. Patient Instructions: Antibiotic Form Stand Alone Forms: General Discharge Information Follow-up/Referrals: Dario Padgett MD [Physician] - 3 Weeks Discharge Medications: New ibuprofen 600 mg Tablet 600 mg PO Q6H PRN (Reason: Cramping) Qty: 30 RF: 0 Date of admission: 10/03/21 06:06 Primary Care Provider: PHYSICIAN,FUR TRIMMING MACHINE OPERATOR Admitting Provider: Dario Padgett Attending physician on admission: Dario Padgett Condition: Stable
== END 2021-10-05 11:36 | disposition home or self-care (01) | DRG 560 ==
LOC: ANHLDR 06:09 → ANHOB2 15:08
PROVIDERS: Admitting Provider Obstetrics & Gynecology; Visit Provider Obstetrics & Gynecology
DX: O99.824 Streptococcus B carrier state complicating childbirth (principal); Z3A.39 39 weeks gestation of pregnancy; Z37.0 Single live birth
CPT/HCPCS: 36415; 85014; 85018; 85025; 86592; 86850; 86900; 86901; A9270; J0690; J2590; J2795; J3010; J7120

== ENCOUNTER 2022-04-08 09:27 | Outpatient (CLI) | payer OTHER, SELFPAY | END 2022-04-08 09:28 | disposition home or self-care (01) | PROVIDERS: Visit Provider Obstetrics & Gynecology | DX: N92.6 Irregular menstruation, unspecified (principal) | CPT/HCPCS: 36415; 84702 ==

== ENCOUNTER 2022-05-21 08:17 | Outpatient (CLI) | payer OTHER, SELFPAY ==
[2022-05-21 10:10] LABS: Basophils Percent Auto 0.2 % (0.2-1.2); Eosinophils Percent Auto 0.5 % (0-4.4); Hematocrit 33.7 % (37.0-47.0); Hemoglobin 11.8 g/dL (12.0-15.0); Immature Granulocyte Absolute 0.03 K/mm3 (0.00-0.031); Immature Granulocyte Percent A 0.4 % (0-0.5); Lymphocytes Absolute Auto 2.01 K/mm3 (0.9-3.2); Lymphocytes Percent Auto 23.6 % (18.3-44.2); Mean Corpuscular Hemoglobin 29.9 pg (26-34); Mean Corpuscular Volume 85.3 fl (80-100); Mean Platelet Volume 12.3 fl (7.4-10.4); Monocytes Absolute Auto 0.5 K/mm3 (0.1-0.6); Monocytes Percent Auto 5.4 % (2.6-8.5); Neutrophils Percent Auto 69.9 % (45.5-73.1); Platelet Count Result 215 k/mm3 (150-375); Red Blood Count 3.95 M/mm3 (4.2-5.4); Red Cell Distribution Width 13.4 % (11.5-14.5); White Blood Count 8.5 K/mm3 (4.5-10.0)
[2022-05-21 10:34] LABS: Alanine Aminotransferase 14 U/L (6-35); Albumin Level 3.9 g/dL (3.5-5.1); Alkaline Phosphatase 65 U/L (38-126); Anion Gap 7 mmol/L (8-16); Aspartate Amino Transferase 18 U/L (14-36); Bilirubin,Total < 0.1 mg/dL (0.2-1.3); Blood Urea Nitrogen 4 mg/dL (7-17); Calcium 8.6 mg/dL (8.4-10.2); Carbon Dioxide 22 mmol/L (22-30); Chloride 108 mmol/L (98-107); Estimated Glomerular Filt Rate > 60; Glucose 105 mg/dL (65-110); Glucose 1 Hour PP 50gm Dose 105 mg/dL; Potassium 3.7 mmol/L (3.4-5.0); Sodium 137 mmol/L (137-145)
[2022-05-21 11:00] LABS: Rapid Plasma Reagin Non-Reactive (NonReactive)
[2022-05-21 11:03] LABS: HIV 1/2 Ab P24 Ag Result Negative (Negative)
[2022-05-21 11:26] LABS: Hepatitis B Surface Antigen Negative (Negative)
[2022-05-21 17:04] LABS: Rubella IgG Antibody > 110.0 IU/ML
[2022-05-24 14:09] LABS: CMV IgG Antibody >10.00 U/mL (<0.60)
== END 2022-05-21 08:18 | disposition home or self-care (01) ==
LOC: ANHLAB 08:20
PROVIDERS: Visit Provider Obstetrics & Gynecology
DX: R53.83 Other fatigue (principal); N94.89 Other specified conditions associated with female genital organs and menstrual cycle
CPT/HCPCS: 36415; 80053; 82947; 84702; 85025; 86592; 86644; 86703; 86747; 86762; 86787; 86850; 86900; 86901; 87086; 87340; G0432

== ENCOUNTER 2022-06-30 08:27 | Observation (INO) | payer OTHER, SELFPAY ==
--- NOTE | 2022-06-30 08:40 | OBADM ---
This patient, Zeinab Dominique, admitted to the OB room OB Post 116 for observation. Patient/family oriented to hospital policies and general routines including ID bracelet, bed and alarms, visiting hours, pain management, procedures, bathroom and other care routines, personal items, smoking policy, room service/diet, and visiting hours. Patient/Family are encouraged to report perceived risks to care and to ask questions if they do not understand what they are told or what they should do.
[2022-06-30 08:46] VITALS: BP 113/47; PULSE 71
[2022-06-30 09:01] VITALS: BP 107/59; PULSE 77
[2022-06-30 09:08] LABS: Appearance Urine Clear (Clear); Bilirubin Urine Negative (Negative); Blood Urine Negative (Negative); Color Urine Yellow (Yellow); Glucose Urine UA Negative (Negative); Ketones Urine Negative (Negative); Leukocyte Esterase Ur Negative LEU/UL (NEGATIVE); Nitrate Urine Negative (Negative); Protein Urine Negative (Negative); Urobilinogen Urine 0.2 mg/dL (<2.0)
[2022-06-30 09:16] VITALS: BP 108/59; PULSE 76
[2022-06-30 10:04] LABS: Add Urine Microscopic? NO
--- NOTE | 2022-07-07 17:48 | PM.OBTRLD ---
OB - Triage/Final Diagnosis Visit Information Reason for evaluation: threatened labor Comments/Additional reasons for admission: I have assessed the risk for this patient, Zeinab Dominique, and determined that she would benefit from observation care. Evaluation Laboratory results: Laboratory Tests 06/30/22 08:50 Urine Color Yellow Urine Appearance Clear Urine pH 7.0 Ur Specific [employer] [place] 1.020 Urine Protein Negative Urine Glucose (UA) Negative Urine Ketones Negative Ur Blood (Man) Negative Urine Nitrate Negative Urine Bilirubin Negative Urine Urobilinogen 0.2 Ur Leukocyte Esterase Negative
== END 2022-06-30 10:16 | disposition home or self-care (01) ==
PROVIDERS: Admitting Provider Obstetrics & Gynecology; Visit Provider Obstetrics & Gynecology
DX: O47.02 False labor before 37 completed weeks of gestation, second trimester (principal); Z3A.24 24 weeks gestation of pregnancy
CPT/HCPCS: 81003; 87086; 87088; G0378; G0379

== ENCOUNTER 2022-08-06 07:56 | Outpatient (CLI) | payer OTHER, SELFPAY ==
[2022-08-06 09:45] LABS: Basophils Percent Auto 0.2 % (0.2-1.2); Eosinophils Percent Auto 0.5 % (0-4.4); Hematocrit 34.4 % (37.0-47.0); Hemoglobin 11.5 g/dL (12.0-15.0); Immature Granulocyte Absolute 0.05 K/mm3 (0.00-0.031); Immature Granulocyte Percent A 0.6 % (0-0.5); Lymphocytes Absolute Auto 1.72 K/mm3 (0.9-3.2); Lymphocytes Percent Auto 19.9 % (18.3-44.2); Mean Corpuscular HGB Conc 33.4 g/dl (32-36); Mean Corpuscular Hemoglobin 29.2 pg (26-34); Mean Corpuscular Volume 87.3 fl (80-100); Mean Platelet Volume 12.1 fl (7.4-10.4); Monocytes Absolute Auto 0.4 K/mm3 (0.1-0.6); Monocytes Percent Auto 4.3 % (2.6-8.5); Neutrophils Absolute Auto 6.5 K/mm3 (1.3-6.7); Neutrophils Percent Auto 74.5 % (45.5-73.1); Platelet Count Result 201 k/mm3 (150-375); Red Blood Count 3.94 M/mm3 (4.2-5.4); Red Cell Distribution Width 13.8 % (11.5-14.5); White Blood Count 8.7 K/mm3 (4.5-10.0)
[2022-08-06 09:53] LABS: Glucose 1 Hour PP 50gm Dose 147 mg/dL
[2022-08-06 10:32] LABS: HIV 1/2 Ab P24 Ag Result Negative (Negative)
== END 2022-08-06 07:57 | disposition home or self-care (01) ==
PROVIDERS: Visit Provider Obstetrics & Gynecology
DX: Z34.92 Encounter for supervision of normal pregnancy, unspecified, second trimester (principal); Z3A.29 29 weeks gestation of pregnancy
CPT/HCPCS: 36415; 82947; 85025; 86703; G0432

== ENCOUNTER 2022-08-07 06:48 | Inpatient (IN) | payer OTHER, SELFPAY ==
[2022-08-07] VITALS (13 sets, daily range): BP systolic 40–137; BP diastolic 23–88; PULSE 68–110; RESP 16–18; TEMP 36.4–36.9; O2SAT 100; BMI 37.1; BMI 37.0
--- NOTE | ~2022-08-07 | US_ITS ---
EXAMINATION: US OB limited DATE: 08/07/2022 10:07 INDICATION: Bleeding during third trimester TECHNIQUE: Real-time ultrasound of the pelvis was performed. The interpreting radiologist was not pre sent for the study. COMPARISON: None. FINDINGS: There is a single living fetus in vertex presentation. The placenta is anterior and greater than 2 cm from the internal cervical os. cardiac activity and movement are noted. heart rate is 140 beats per minute (bpm). The amniotic fluid index is subjectively normal. IMPRESSION: 1. Single living fetus in vertex presentation. 2. No sonographic correlate for the patient's symptoms. Reviewed, dictated and finalized at location B.
--- NOTE | 2022-08-07 07:15 | PC.NURSE ---
Dr. Bloden on unit. Informed of pt admission with low abdominal pain and bleeding. Pain is better when sitting in bed. Orders received.
[2022-08-07 08:43] LABS: Add Urine Microscopic? YES; Appearance Urine Clear (Clear); Bilirubin Urine Negative (Negative); Blood Urine 2+ (Negative); Color Urine Straw (Yellow); Glucose Urine UA Negative (Negative); Ketones Urine Negative (Negative); Leukocyte Esterase Ur Negative LEU/UL (NEGATIVE); Mucus Urine Rare /lpf; Nitrate Urine Negative (Negative); Protein Urine Negative (Negative); Specific Grav Ur 1.006 (1.001-1.035); Squamous Epithelial Cell Urine Rare /hpf (Few); Urobilinogen Urine Negative mg/dL (<2.0); WBC Urine 0-3 /hpf (0-3)
--- NOTE | 2022-08-07 09:28 | PC.NURSE ---
Called Dr. Bolden with pt status. Baseball size spot of bright red bleeding noted on chux pad. Some blood noted on perineum. Pain is now 5 on 1-10 scale while sitting in bed. monitor removed. Orders received.
--- NOTE | 2022-08-07 10:37 | PC.NURSE ---
Called Dr. Bolden with ultrasound report. Informed of contractions q 2 min. Orders received.
[2022-08-07 10:43] LABS: Basophils Percent Auto 0.3 % (0.2-1.2); Eosinophils Percent Auto 0.4 % (0-4.4); Hematocrit 34.1 % (37.0-47.0); Hemoglobin 11.6 g/dL (12.0-15.0); Immature Granulocyte Absolute 0.03 K/mm3 (0.00-0.031); Immature Granulocyte Percent A 0.3 % (0-0.5); Lymphocytes Absolute Auto 1.94 K/mm3 (0.9-3.2); Lymphocytes Percent Auto 17.9 % (18.3-44.2); Mean Corpuscular Hemoglobin 29.1 pg (26-34); Mean Corpuscular Volume 85.7 fl (80-100); Mean Platelet Volume 12.2 fl (7.4-10.4); Monocytes Absolute Auto 0.5 K/mm3 (0.1-0.6); Monocytes Percent Auto 4.4 % (2.6-8.5); Neutrophils Absolute Auto 8.3 K/mm3 (1.3-6.7); Neutrophils Percent Auto 76.7 % (45.5-73.1); Platelet Count Result 186 k/mm3 (150-375); Red Blood Count 3.98 M/mm3 (4.2-5.4); Red Cell Distribution Width 13.6 % (11.5-14.5); White Blood Count 10.8 K/mm3 (4.5-10.0)
[2022-08-07] MEDS: TERBUTALINE SULFATE 1 MG/ML VIAL 0.25 MG SUB-Q ×2 (10:48→18:42)
[2022-08-07] MEDS: LACTATED RINGERS 1,000 ML 125 ML IV CONT (10:56)
[2022-08-07 11:05] LABS: Partial Thromboplastin Time 28.6 SECONDS (22.3-36.8)
[2022-08-07 11:06] LABS: Fibrinogen 409 mg/dl (215-510)
--- NOTE | 2022-08-07 12:21 | PM.IMHP ---
H&P: HPI History of Present Illness Date/Time: 08/07/22 12:21 Chief Complaint: vaginal bleeding and pain Narrative: Zeinab is a 31yo @ 29.5wks who presented to L&D with bright red vaginal bleeding and pain. She reports having pressure, round ligament pulling, and cramping pains since late last night. She started having the bleeding this morning. She had a small amount of red bleeding on the labia and on a baseball sized amount on a emilie once then small area on a new emilie around 9-11am. Labs were normal (coags, cbc, rh positive). US confirmed cephalic presentation; normal appearing anterior placenta (not low lying). After US, she was noted to be jian and IV fluids and dose of terb was given; contractions have spaced out and no further bleeding has been noted. 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 Shoulder pain Suppression of menstruation Surgical History Surgical History History of bilateral breast reduction surgery (07/30/20) Family History Family History Son Asthma Sibling Asthma Social History Social History Years smoked: 1 Smoking status: Never smoker Tobacco type: cigars Second hand tobacco smoke exposure: No Smoking end date: 11/29/15 Additional smoking assessment comments: QUIT 2014- SMOKED 1 CIGAR/WEEK Alcohol intake: current Drinks per week: 1 Substance use: never Spiritual care concerns: No Meds Home Medications and Allergies Home Medications Medication Instructions Recorded Confirmed Type vitamins-iron fumarate 65 1 tablet PO DAILY #90 tabs 04/13/22 07/16/22 Rx mg iron-folic acid 1 mg tablet sertraline 100 mg tablet (Zoloft) 100 mg PO DAILY #30 tabs 04/14/22 07/16/22 Rx fluconazole 150 mg tablet 150 mg PO DAILY #2 tabs 07/27/22 Rx (Diflucan) Allergies Allergy/AdvReac Type Severity Reaction Status Date / Time amoxicillin AdvReac Mild yeast Verified 07/16/22 14:56 infection Vital Signs Vital Signs - 24 hr 08/07/22 07:00 08/07/22 07:52 Pulse Rate 77 Blood Pressure 108/63 Oxygen Delivery Room Air Exam Const: General: cooperative, comfortable and no acute distress Nutritional Appearance: obese Resp: Effort & Inspection: normal respiratory effort Cardio: Rate: regular rate GI: Inspection: normal to inspection GI Palp: No abdominal tenderness and Yes Soft to palpation : Other: FHT's: 140's/ mod norman/ + accels/ no decels - reassuring No ctx's now H&P: Results Labs Labs: Short CBC 08/07/22 Range/Units 10:26 WBC 10.8 H (4.5-10.0) K/mm3 Hgb 11.6 L (12.0-15.0) g/dL Hct 34.1 L (37.0-47.0) % Plt Count 186 (150-375) k/mm3 Urine 08/07/22 Range/Units 07:45 Urine Color Straw (Yellow) Urine Appearance Clear (Clear) Urine pH 9.0 (5.0-9.0) Ur Specific [place] 1.006 (1.001-1.035) Urine Protein Negative (Negative) mg/dL Urine Glucose (UA) Negative (Negative) mg/dL Assessment and Plan Assessment and plan (1) : Qualifiers: Weeks of gestation: 29 weeks Qualified Code(s): Z3A.29 - 29 weeks gestation of Code(s): Z34.90 - Encounter for supervision of normal , unspecified, unspecified trimester Status: Acute (2) Vaginal bleeding in : Code(s): O46.90 - Antepartum hemor
--- NOTE | 2022-08-07 12:43 | WPDHPUPDATE1 ---
History and Physical Update Update Date/Time: 08/07/22 12:43 History and Physical has been reviewed, including an updated exam of the patient. There are NO changes in the patient's condition. Risks, benefits, and alternatives have been discussed and questions answered. Patient agrees to proceed with procedure.
--- NOTE | 2022-08-07 16:05 | PC.NURSE ---
Patient sitting up in bed and leaning forward talking to family. Attempt to reposition heart tones. Pt states she does not need me to to that. States this happens when she moves and she does not want me to try to reposition. Pt states she will move and place baby back on monitor but does not want me to do so.
[2022-08-07] MEDS: ACETAMINOPHEN 500 MG TABLET 1000 MG PO (18:44)
--- OUTSIDE RECORDS SUMMARY | 2022-08-07 19:29 | XMS_ITS ---
:1990 Author Allergies Code Code System Name Reaction Severity Status Onset NKDA ? Medications Name Status Start Date Stop Date ? ? fluticasone propionate 50 mcg/actuation nasal Completed ? 04/21/2018 spray,suspension hydrocodone 5 mg-acetaminophen 325 mg tablet Completed ? 04/21/2018 ibuprofen 600 mg tablet Completed ? 04/21/20 18 ibuprofen 800 mg tablet Completed ? 04/21/20 18 Problems No Known Problems Procedures None recorded. Results Lab Results None recorded. Past Encounters None recorded. Social History Tobacco Smoking Status Current Every Day Smoker Notes: cig ar One per day Vaccine List Vaccine Type Tdap 04/21/2018?0.5 mL Plan of Care Reminders Provider Appointments None recorded. ? ? Lab None recorded. ? ? Referral None recorded. ? ? Procedures None recorded. ? ? Surgeries None recorded. ? ? Imaging None recorded. ? ? Vitals Height Weight BMI Blood Pressure 5 ft 5.75 in 193 lbs 12.8 oz 31.5 kg/m2 102/70 mm[Hg]
--- OUTSIDE RECORDS SUMMARY | 2022-08-07 19:29 | XMS_ITS ---
:1990 Author Care Team Providers Name Role Phone Dario Padgett Primary Care Provider Unavailable Allergies Code Code System Name Reaction Severity Status Onset 723 RxNorm Amoxicillin Nausea Moderate Active ? Vomiting Moderate Active ? Medications Name Status Start Date Stop Date ? ? acetaminophen 300 mg-codeine 30 mg tablet Completed ? 08/21/2019 TK 1 T PO Q 6 TO 8 H PRN albuterol sulfate HFA 90 mcg/actuation aerosol inhaler Completed ? 02/17/2021 INL 1 INHALATION PO Q 4 H PRF SOB OR WHZ amoxicillin 500 mg capsule Completed ? 06/28 TAKE 1 CAPSULE PO EVERY 8 HOURS amoxicillin 875 mg tablet Active ? Not av ailable TK 1 T PO Q 12 H amoxicillin 875 mg-potassium clavulanate 125 mg tablet Completed ? 08/21/2019 TK 2 TS PO D FOR 10 DAYS azithromycin 500 mg tablet Completed ? 08/21 TK 2 TS PO ONCE FOR 1 DOSE benzonatate 200 mg capsule Active ? Not a vailable TK 1 C PO TID PRF COUGH clindamycin HCl 300 mg capsule Active ? N ot available TK 1 C PO Q 8 H cyclobenzaprine 5 mg tablet Completed ? 01/28 TAKE 1 TABLET BY MOUTH THREE TIMES DAILY NEEDED FOR MUSCLE S PASM dicyclomine 20 mg tablet Completed ? 019 TK 1 T PO Q 6 H DOK 100 mg capsule Active ? Not available TK ONE C PO BID doxycycline hyclate 100 mg capsule Active ? Not available TK 1 C PO BID FeroSul 325 mg (65 mg iron) tablet Completed ? 06/26/2021 fluticasone propionate 50 mcg/actuation nasal spray,suspension C ompleted ? 08/21/20
--- OUTSIDE RECORDS SUMMARY | 2022-08-07 19:29 | XMS_ITS ---
[...] albuterol sulfate HFA 90 mcg/actuation aerosol inhaler Active ? Not available INL 1 INHALATION PO Q 4 H PRF SOB OR WHZ amoxicillin 875 mg tabs Completed ? 05/16/20 20 amoxicillin 500 mg capsule Completed ? 06/28 TAKE 1 CAPSULE PO EVERY 8 HOURS amoxicillin 875 mg tablet Completed ? 2019 TK 1 T PO Q 12 H amoxicillin 875 mg-potassium clavulanate 125 mg tablet Completed ? 08/21/2019 TK 2 TS PO D FOR 10 DAYS azithromycin 500 mg tablet Completed ? 08/21 TK 2 TS PO ONCE FOR 1 DOSE benzonatate 200 mg caps Completed ? 05/16/20 20 benzonatate 200 mg capsule Completed ? 05/16 TK 1 C PO TID PRF COUGH clindamycin HCl 300 mg capsule Completed ? 0 12/11/2020 cyclobenzaprine 5 mg tablet Active ? Not available TAKE 1 TABLET BY MOUTH THREE TIMES DAILY NEEDED FOR MUSCLE S PASM cyclobenzaprine hydrochloride 5 mg tabs Completed ? 05/16/2020 dicyclomine 20 mg tablet Completed ? 019 TK 1 T PO Q 6 H DOK 100 mg capsule Completed ? 12/11/2020 TK ONE C PO BID doxycycline hyclate 100 mg capsule Completed ? 12/11/2020 fluticasone propionate 50 mcg/actuation nasal spray,suspension C ompleted ? 08/21/2019 INT 2 SPR
[2022-08-07] MEDS: OXYTOCIN 30 UNITS/NS 500 ML 30 UNITS/500 ML BAG 999 UNITS IV CONT (19:45)
--- NOTE | 2022-08-07 19:55 | P.PCNOB_ITS ---
OB - Delivery Note Procedure Delivery date: 08/07/22 Events: Other ( labor) Delivery augmentation: Rupture of Membranes Delivery monitor: External FHT and External Uterine Route of delivery: Laceration Description: None Specimen: Yes (placenta, sent with baby at transport) Quantitative Blood Loss (ml): 100 Anesthesia type: None Disposition: Floor Baby Date of : 08/07/22 Time of : 19:43 Weeks of gestation at delivery: 29 (.5) Infant gender: Male presentation: vertex Placenta delivery description: Expressed (~2-5% area of possible infarction but placenta was expressed, did not deliver on its own) Cord Vessel Description: 3 Vessels and Clamped/Cut Narrative: Patient was stable from ~1300 until about 1830 (no pain, bleeding, or contractions were noted on the monitor). I received a call that the patient acutely started feeling significant pain and contractions at that time. She was given another dose of terb, which did not help this time. She continued to have pain and reported vaginal pressure and I instructed the nurse to perform a cervical exam. I was contacted at 191 that on exam, no cervix was palpated but a bulging bag was felt at +2 station. Pediatrics was notified, who also contacted [facility] for transport. I arrived at bedside at 191, where the pediatric and OB teams were set up. An intact amniotic sac was present at the introitus. She breathed through contractions for a significant amount of time, trying to wait on the [facility] team to arrive. During this time, featl heart rate was 140s with moderate variability; occasional variable decelerations were noted but had good return to baseline. A small trickle of blood was noted at the perineum of ~10cc. AROM was performed at 194, copious amounts of clear fluid was noted. She pushed 2 contractions and delivered the head over intact perineum. She easily delivered his shoulders and body without complications. A cord was noted over his shoulder. He was placed on moms abdomen and was vigorous with good tone; no cry. Pediatrics instructed me to forego delayed cord clamping and the cord was doubly clamped and cut. The was then taken to the warmer. A segment of the cord was collected for cord gases. With pitocin running and downward traction on the cord, the placenta then delivered. She was found to be well contracted with minimal bleeding. The placenta was examined and a small area of possible infarct was noted (~2-5% of the entire placenta). Sponge, lap, instrument and needle counts were correct at the end of the procedure. [facility] Delivery Billing Delivery Delivery: Delivery Charge
[2022-08-07] MEDS: OXYTOCIN 30 UNITS/NS 500 ML 30 UNITS/500 ML BAG 125 UNITS IV CONT (20:18)
--- NOTE | 2022-08-07 23:03 | LDADM ---
This patient, Zeinab Dominique, was admitted to OB 2nd Floor Room 284 on 08/07/22 at 19:17. Plans for labor, pain management and were discussed with patient. Patient/family oriented to hospital policies and general routines including ID bracelet, bed and alarms, visiting hours, pain management, procedures, bathroom and other care routines, personal items, smoking policy, room service/diet and guest tray routines, infant security routines, and visiting hours. Patient/Family are encouraged to report perceived risks to care and to ask questions if they do not understand what they are told or what they should do. See OBIX for further documentation.
[2022-08-08] MEDS: IBUPROFEN 600 MG TABLET PO (00:06)
[2022-08-08] MEDS: ACETAMINOPHEN 325 MG TABLET 650 MG PO (00:07)
[2022-08-08 04:00] VITALS: BP 110/55; PULSE 76; RESP 18; TEMP 36.8; O2SAT 100
[2022-08-08 05:04] LABS: Hematocrit 31.1 % (37.0-47.0); Hemoglobin 10.4 g/dL (12.0-15.0)
[2022-08-08 08:40] VITALS: BP 129/77; PULSE 61; RESP 18; TEMP 36.8; O2SAT 100
--- NOTE | 2022-08-08 08:47 | PM.OBPNVD ---
OB - PN: Subj Subjective Date/time seen: 08/08/22 08:47 Narrative: PPD#1 Zeinab reports doing well today. Her bleeding is light. Her pain is controlled. She is tolerating regular diet, voiding, passing gas, and ambulating without issues. She would like to go home today as her son was transferred to [facility]. OB - PN: Obj Data Labs CBC & Chem 7: 08/08/22 03:55 Labs: Laboratory Results - last 24 hr 08/07/22 08/07/22 08/07/22 07:45 10:26 10:26 WBC 10.8 H RBC 3.98 L Hgb 11.6 L Hct 34.1 L MCV 85.7 MCH 29.1 MCHC 34.0 RDW 13.6 Plt Count 186 MPV 12.2 H Immature Gran % (Auto) 0.3 Neut % (Auto) 76.7 H Lymph % (Auto) 17.9 L [place] % (Auto) 4.4 Eos % (Auto) 0.4 Baso % (Auto) 0.3 Lymph # (Auto) 1.94 [place] # (Auto) 0.5 Eos # (Auto) 0.0 Baso # (Auto) 0.0 Abs Immat Gran (auto) 0.03 Absolute Neuts (auto) 8.3 H Absolute Nucleated RBC 0.0 Nucleated RBC % 0.0 PT 13.0 INR 1.0 APTT 28.6 Fibrinogen 409 Urine Color Straw Urine Appearance Clear Urine pH 9.0 Ur Specific [place] 1.006 Urine Protein Negative Urine Glucose (UA) Negative Urine Ketones Negative Ur Blood (Man) 2+ H Urine Nitrate Negative Urine Bilirubin Negative Urine Urobilinogen Negative Ur Leukocyte Esterase Negative Urine RBC 11-20 H Urine WBC 0-3 Ur Squamous Epith Cells Rare Urine Mucus Rare Blood Type 08/07/22 08/08/22 10:26 03:55 WBC RBC Hgb 10.4 L Hct 31.1 L MCV MCH MCHC RDW Plt Count MPV Immature Gran % (Auto) Neut % (Auto) Lymph % (Auto) [place] % (Auto) Eos % (Auto) Baso % (Auto) Lymph # (Auto) [place] # (Auto) Eos # (Auto) Baso # (Auto) Abs Immat Gran (auto) Absolute Neuts (auto) Absolute Nucleated RBC Nucleated RBC % PT INR APTT Fibrinogen Urine Color Urine Appearance Urine pH Ur Specific [place] Urine Protein Urine Glucose (UA) Urine Ketones Ur Blood (Man) Urine Nitrate Urine Bilirubin Urine Urobilinogen Ur Leukocyte Esterase Urine RBC Urine WBC Ur Squamous Epith Cells Urine Mucus Blood Type O Positive Imaging Radiologist's impression: Impressions Obstetrics Ultrasound 08/07/22 10:15 IMPRESSION: 1. Single living fetus in vertex presentation. 2. No sonographic correlate for the patient's symptoms. OB - PN A/P Assessment and Plan (1) delivery: Code(s): O60.10X0 - labor with delivery, unspecified trimester, not applicable or unspecified Status: Acute Plan day: 1 Plan: routine care Comments: - Pelvic rest; take meds as prescribed - ER return precautions: fever, n/v/abd pain, bleeding, HTN Time Spent With Patient Time: Total time spent is greater than 50% in coordination of care (as documented) at patient's floor/unit and/or counseling patient: Review of Systems Constitutional: Constitutional: Denies chills, Denies fever(s) and Denies headache(s) Eyes: Eyes: Denies change in vision ENT: Denies dizziness and Denies headache(s) Cardiovascular: Cardiovascular: Denies chest pain, Denies palpitations and Denies dyspnea Respiratory: Respiratory: Denies cough and Denies dyspnea Gastrointestinal: Gastrointestinal: Denies nausea and Denies vomiting Neurologic: Denies dizziness and Denies headache(s) Endocrine: Endocrine: Denies palpitations Exam Const: General: cooperative, comfortable and no acute distress Orientation/consciousness: patient oriented x3 Resp: Effort & Inspection: normal respiratory effort Auscultation: clear to auscultation bilaterally Cardio: Rate: regular rate GI: Inspection: non-distended GI Palp: No abdominal tenderness and Yes Soft to palpation Auscultation: normal bowel sounds : Other: fundus firm Skin: General skin exam: normal c
[2022-08-08] MEDS: DOCUSATE SODIUM 100 MG CAPSULE PO (08:56)
--- NOTE | 2022-08-08 10:08 | WPDANLDPN2 ---
Anes-Prog Note L&D Date/Time: 08/08/22 10:08 Neuro status: Neuro function grossly intact. Vital Signs: Last Vital Signs Temp 36.8 C 08/08/22 04:00 Pulse 76 08/08/22 04:00 Resp 18 08/08/22 04:00 BP 110/55 L 08/08/22 04:00 Pulse Ox 100 08/08/22 04:00 O2 Del Method Room Air 08/08/22 09:00 Pain score (VAS): 0 I/O: Intake & Output 08/07/22 08/08/22 08/08/22 23:59 07:59 15:59 Intake Total 500 Output Total 100 Balance 400 Patient feedback: Patient satisfied with anesthetic care.
[2022-08-08] MEDS: TETANUS,DIPHTHERIA,AC PERTUSSIS ADULT (0.5 ML) BOOSTRIX IM (11:34)
--- NOTE | 2022-08-11 15:38 | PM.OBDSVD ---
DS: Admitting Diagnosis Discharge Date 08/08/22 Admitting Diagnosis vaginal bleeding DS: Discharge Diagnosis Discharge Diagnosis (1) delivery: Code(s): O60.10X0 - labor with delivery, unspecified trimester, not applicable or unspecified Status: Acute OB - DS: Summary OB Procedures : NST and Ultrasound OB Procedures Intrapartum: Spontaneous Vag Delivery OB Procedures: : None Peripartum Data Delivery Method: Natural Vaginal Laceration Description: None complications: none 1: Gender: Male Disposition of : NICU Status at Discharge Functional status at discharge: independent ambulation Overall status at discharge: patient is back to baseline Time Spent with Patient Time attestation: Total time spent providing and/or coordinating discharge services: Time spent: Less than 30 minutes Exam Const: General: cooperative, comfortable and no acute distress Nutritional Appearance: obese Orientation/consciousness: patient oriented x3 Resp: Effort & Inspection: normal respiratory effort Auscultation: clear to auscultation bilaterally Cardio: Rate: regular rate GI: Inspection: non-distended GI Palp: No abdominal tenderness and Yes Soft to palpation Auscultation: normal bowel sounds : Other: fundus firm Skin: General skin exam: normal color Neuro: General: patient oriented x3 Extrem: General: normal to inspection Psych: Appearance: grossly normal Affect: normal affect Attitude: cooperative Discharge Plan Discharge Attending physician on discharge: Fanny Bolden Consulting providers: Negrito Butcher ; Gianna Tate Discharging Clinician: Fanny Bolden Anticipated Discharge Date/Time: 08/08/22 11:00 Patient Disposition: Home, Self-Care Activity: may shower Diet: regular Discharge Instructions: Education: Mom and Baby Guide Given to: Mother Follow-Up: Call your delivering provider's office for an appointment to be seen in: 4 Weeks Mom should come to the [facility] for the follow-up appointment. Appointment Date/Time: August 10, 2022 at 2:30 pm What to expect at your follow-up visit: Blood Pressure Check Physical Assessment Call [phone] if you are unable to keep your appointment time. BREAST CARE: * Wear a snug supportive bra. * For engorgement discomfort: Bottle Feeding: * May apply ice packs PERINEAL CARE: * Until bleeding stops, use your arti bottle after urinating * Change your pad frequently throughout the day * You may take sitz baths several times a day (fill your bathtub with warm water and soak for 20 minutes.) Do NOT bathe in the water * No tub baths until seen by your physician - You may shower ACTIVITY: * Rest as much as possible. * Do not exercise or lift anything heavier than your baby (such as laundry or other children.) * Avoid stairs or driving as much as possible. * Do not put anything into the vagina. No douching, tampons, or sexual activity until seen by physician. NOTIFY PHYSICIAN IF YOU HAVE ANY QUESTIONS OR IF ANY OF THE FOLLOWING SYMPTOMS OCCUR: * If your episiotomy or incision becomes red, swollen, or more painful than what you have experienced in the hospital. * If your vaginal bleeding becomes foul smelling. * If your vaginal bleeding becomes more heavy than a period or if your bleeding changes from pink to bright red. However, you may pass an occasional walnut-sized clot once or twice for the first week . * If you experience a sharp, shooting pain in you calves. * If you discover a hard, reddened area on your breast or if you experience flu-like symptoms. DIET: * Eat regular, well-balanced meals. * Drink plenty of fluids daily. Stand Alone Forms: General Discharge Information Follow-up/Referrals: Fanny Bolden MD [Physician] - 4 Weeks Discharge Medications: New acetaminophen [Mapap (acet
== END 2022-08-08 12:00 | disposition home or self-care (01) | DRG 560 ==
LOC: ANHOBPP 19:30 → ANHOB2 08-08 08:50 → ANHLDR 08-11 10:47 → ANHOB2 08-11 10:47
PROVIDERS: Admitting Provider Obstetrics & Gynecology; Visit Provider Obstetrics & Gynecology
DX: O60.14X0 Preterm labor third trimester with preterm delivery third trimester, not applicable or unspecified (principal); O62.3 Precipitate labor; O69.82X0 Labor and delivery complicated by other cord entanglement, without compression, not applicable or unspecified; Z3A.29 29 weeks gestation of pregnancy; Z37.0 Single live birth
CPT/HCPCS: 36415; 76815; 81001; 85014; 85018; 85025; 85384; 85610; 85730; 86900; 86901; 87086; 87088; 90715; A9270; J2590; J3105; J7120

== ENCOUNTER 2022-09-03 16:11 | Outpatient (CLI) | payer OTHER, SELFPAY ==
[2022-09-03 17:00] LABS: Beta HCG Quantitative < 2.39 mIU/ML
== END 2022-09-03 16:12 | disposition home or self-care (01) ==
LOC: ANHLAB 16:12
PROVIDERS: Visit Provider Obstetrics & Gynecology
DX: N92.6 Irregular menstruation, unspecified (principal)
CPT/HCPCS: 36415; 84702

== ENCOUNTER 2022-11-06 07:58 | Outpatient (CLI) | payer OTHER, SELFPAY ==
[2022-11-06 08:17] LABS: Basophils Percent Auto 0.5 % (0.2-1.2); Eosinophils Absolute Auto 0.1 K/mm3 (0-0.3); Eosinophils Percent Auto 1.4 % (0-4.4); Hematocrit 39.2 % (37.0-47.0); Immature Granulocyte Absolute 0.01 K/mm3 (0.00-0.031); Immature Granulocyte Percent A 0.1 % (0-0.5); Lymphocytes Absolute Auto 3.14 K/mm3 (0.9-3.2); Lymphocytes Percent Auto 41.3 % (18.3-44.2); Mean Corpuscular HGB Conc 33.2 g/dl (32-36); Mean Corpuscular Hemoglobin 29.4 pg (26-34); Mean Corpuscular Volume 88.7 fl (80-100); Mean Platelet Volume 11.8 fl (7.4-10.4); Monocytes Absolute Auto 0.5 K/mm3 (0.1-0.6); Monocytes Percent Auto 6.3 % (2.6-8.5); Neutrophils Absolute Auto 3.8 K/mm3 (1.3-6.7); Neutrophils Percent Auto 50.4 % (45.5-73.1); Platelet Count Result 204 k/mm3 (150-375); Red Blood Count 4.42 M/mm3 (4.2-5.4); Red Cell Distribution Width 13.9 % (11.5-14.5); White Blood Count 7.6 K/mm3 (4.5-10.0)
[2022-11-06 08:31] LABS: Alanine Aminotransferase 26 U/L (6-35); Albumin Level 4.1 g/dL (3.5-5.1); Alkaline Phosphatase 70 U/L (38-126); Anion Gap 4 mmol/L (8-16); Aspartate Amino Transferase 27 U/L (14-36); Bilirubin,Total 0.3 mg/dL (0.2-1.3); Blood Urea Nitrogen 12 mg/dL (7-17); Calcium 8.7 mg/dL (8.4-10.2); Carbon Dioxide 24 mmol/L (22-30); Chloride 110 mmol/L (98-107); Cholesterol 138 mg/dL (0-200); Estimated Glomerular Filt Rate > 60; Glucose 107 mg/dL (65-110); HDL Direct 36 mg/dL; Sodium 138 mmol/L (137-145); Triglycerides 117 mg/dL (<150)
[2022-11-06 08:41] LABS: LDL Cholesterol Direct 74 mg/dL
[2022-11-06 08:59] LABS: Vitamin D 25 Hydroxy 18.3 ng/mL
== END 2022-11-06 07:59 | disposition home or self-care (01) ==
LOC: ANHLAB 08:00
PROVIDERS: PCP Family Medicine; Visit Provider Nurse Practitioner Family
DX: Z00.00 Encounter for general adult medical examination without abnormal findings (principal); E55.9 Vitamin D deficiency, unspecified; Z13.220 Encounter for screening for lipoid disorders
CPT/HCPCS: 36415; 80053; 80061; 82306; 84443; 85025

== ENCOUNTER 2025-01-11 08:45 | Emergency (ER) | payer OTHER, SELFPAY ==
[2025-01-11 08:52] VITALS: BP 125/70; PULSE 67; RESP 14; TEMP 36.2; O2SAT 100
--- OUTSIDE RECORDS SUMMARY | 2025-01-11 08:53 | XMS_ITS | Data Portability ---
[facility] [address] [place] [address] Assessment No assessment recorded. Plan of Treatment Reminders Order Date Submit Date Provider Last Modified By Organization Details Last Modified Time Details Appointments None record ed. Lab None record ed. Referral None record ed. Procedures None record ed. Surgeries None record ed. Imaging None record ed. Medication Orders None record ed. Patient TargetsNo targets recorded. Patient InstructionsNo instructions recorded. Reason for Referral None Reported. Problems No Known Problems Medical Equipment None Reported. Allergies No known drug allergies Medications Name Sig Start Date Stop Date Status Note LastModified by Organization Details LastModified Time ibuprofen 800 mg tablet 2017 completed Not Available Not Available Not Available hydrocodone 5 mg-acetaminop hen 325 mg tablet 2017 completed Not Available Not Available Not Available ibuprofen 600 mg tablet 2017 completed Not Available Not Available Not Available fluticasone propionate 50 mcg/actuation nasal spray,suspens ion 2017 completed Not Available Not Available Not Available Vitals Date Recorded Body height Body mass index (BMI) Body weight Oxygen saturation Oxygen saturation in Arterial blood by Pulse oximetry Heart rate Body temperature Systolic blood pressure Diastolic blood pressure Provider Name and Address Organization Details Last Updated DateTime 8 167.01 cm 31.5 kg/m2 26507.2 g 97 % 97 % 56 /min 98.2 [degF] 102 mm[Hg] 70 mm[Hg] Victor Hugo Brody MA [facility] 8 14:32:25 Social History Question Answer Notes LastModified by Organizat ion Details LastModified Time Tobacco Smoking Status Current Every Day Smoker cigar Victor Hugo Brody MA null, [facility] 04/21/2018 14:24:41 What Is Your Level Of Alcohol Consumption? Occasional [email or web address] Information not available 04/21/2018 What Was The Date Of Your Most Recent Tobacco Screening? 04/21/2018 Information not available 06/22/2019 Sex: Unknown Functional Status None recorded. Mental Status None recorded. Family History Nothing Reported. Medical History No medical history recorded. Gynecological History Statement/Question Response Date of LMP 04/03/2018 Obstetrics History GPAL:G 0 P 0 0 0 0 Immunizations Vaccine Type Date Status Note Provider Nam e and Address Organization Details Recorded Time Tdap 04/21/2018 completed [facility] Available [facility]2019 02:49:14 Past Encounters Encounter ID Performer Location Encounter Start Date Encounter Closed Date Diagnosis/Indication Diagnosis SNOMED-CT Code Diagnosis ICD10 Code Diagnosis Note [id number] Chelita Turner MD [facility] (Adult Med) [address] [place] [address] 04/21/2018 13:59:51 04/26/2018 11:17:10 Adult health examination 973746825 Z00.00 Active or passive immunization 721838773 Z23 Health Concerns Section Related Observation LastModified by Organization Detai ls LastModified Time None Recorded Concern Status LastModified by Organization Details LastModified Time None Recorded Advance Directives Directive None Recorded Payers Encounter Date Sequence Insurance Name Policy Number Policy Ceballos Covered Member ID Ceballos Member ID Guarantor Name 04/21/2018 1 [facility] [employer] PRIOR TO 05/29/2021 (MEDICAID REPLACEMENT - HMO) Zeinab Dominique [id number] Zeinab Dominique Notes Date Note Type Note Provider Name and Address Organization Details Recorded Time 04/21/2018 text/html First time, NKDA, wants update Tdap immunization, not sick, no symptomes , not , no fever. Chelita Truner MD Attn: Accounting,[address] [place], [address], [place] 04/21/2018 14:57:51 OBGyn Episode No OBEpisode recorded.
--- NOTE | 2025-01-11 09:41 | ED.GENADULT ---
HPI - General Adult General Chief complaint: Ear Stated complaint: L EAR AND HEAD PAIN X1D Time Seen by Provider: 01/11/25 08:50 History of Present Illness HPI narrative: Zeinab Dominique is a 34-year-old female who presents today with complaints of having left ear pain yesterday she tried to clean it out she usually does it started to develop more pain. She states that she went to bed and when she woke up today she is having increasing pain in her left ear. She denies any fevers she reports having a mild runny nose and she is starting to have a sore throat. She denies having any cough. 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 Obesity Asthma Shoulder pain Back pain Surgical History Surgical History History of bilateral breast reduction surgery (07/30/20) Family History Family History Son Asthma Sibling Asthma Social History Social History Years smoked: 1 Smoking status: Former smoker Tobacco type: cigars Second hand tobacco smoke exposure: No Smoking end date: 11/29/15 Additional smoking assessment comments: QUIT 2015- SMOKED 1 CIGAR/WEEK Alcohol intake: current Drinks per week: 1 Substance use: current Substance use type: marijuana Other substance usage details: daily Lack of Transportation: No Lack of Food: Never True Current Housing: I Have Housing Concerned About Future Housing: No Difficulty Paying Gas/Electric Bills: No Difficulty Paying for Meds: No Currently Unemployed: No Education: Trade/Vocational Certificate Difficulty w/ Childcare or Family Care: No Living arrangements: alone Additional living arrangements comments: single Occupation/Education: unemployed Gender identity (if verbalized by the patient): Female Sexual Orientation (if Verbalized by the Patient): Straight or Heterosexual Spiritual care concerns: No Agree to blood products: Yes Exam Narrative: GENERAL: Well-appearing, well-nourished, and in no acute distress. HEAD: Normocephalic, atraumatic. EYES: PERRLA and EOMI. ENT: Nares clear, no rhinorrhea or epistaxis. Mucous membranes moist. Oropharynx without tonsillar hypertrophy exudate or other lesions. Right TM pearly umnroe, left hand bulging with effusion and mild erythema TM is intact. NECK: Supple. No adenopathy or masses. No carotid bruits or JVD CHEST: Clear to auscultation. No respiratory distress. No wheezes rales or rhonchi HEART: Regular rate and rhythm. No murmur heard. Normal peripheral pulses. ABDOMEN: Soft, nontender, nondistended, normal active bowel sounds. EXTREMITIES: Normal range of motion. No edema. SKIN: Warm, dry, no rash. NEURO: No focal deficits. Alert and oriented x3. PSYCH: Normal mood and affect. Course Vital Signs Vital signs: Vital Signs Temperature 36.2 C L 01/11/25 08:52 Pulse Rate 67 01/11/25 08:52 Respiratory Rate 14 01/11/25 08:52 Blood Pressure 125/70 01/11/25 08:52 Pulse Oximetry 100 01/11/25 08:52 Temperature 36.2 C L 01/11/25 08:52 Pulse Rate 67 01/11/25 08:52 Respiratory Rate 14 01/11/25 08:52 Blood Pressure 125/70 01/11/25 08:52 Pulse Oximetry 100 01/11/25 08:52 Medical Decision Making [facility] Narrative Medical decision making narrative: 34-year-old female who presents today with complaints ear pain on exam in history present illness this is consistent with a left otitis media. No meningeal signs, no mastoid tenderness or swelling or erythema noted. For onset of runny nose and sore throat will test her for COVID, flu, RSV. With her complaints of the left ear exam was start treatment for otitis media. Will start her on Azithromycin Viral swab negative Patient updated with results and plan to discharge home the next day and encouraged Tylenol for pain he push hydration and close follow-up with primary care doctor if she develops any worsening symptoms she can return to the ER> Medical Records Medical records reviewed: Yes I reviewed the external patient's medical records. Vital Signs Vital Signs: Vital Signs Temperature 36.2 C L 01/11/25 08:52 Pulse Rate 67 01/11/25 08:52 Respiratory Rate 14 01/11/25 08:52 Blood Pressure 125/70 01/11/25 08:52 Pulse Oximetry 100 01/11/25 08:52 Temperature 36.2 C L 01/11/25 08:52 Pulse Rate 67 01/11/25 08:52 Respiratory Rate 14 01/11/25 08:52 Blood Pressure 125/70 01/11/25 08:52 Pulse Oximetry 100 01/11/25 08:52 Vitals reviewed by me Lab Data Lab results reviewed: Yes I reviewed the patient's lab results. Labs: Lab Results 01/11/25 Range/Units 09:46 Influenza A (RT-PCR) Negative (Negative) Influenza B (RT-PCR) Negative (Negative) RSV (RT-PCR) Negative (Negative) SARS-CoV-2 RNA (RT-PCR) Negative (Negative) Discharge Plan Discharge Clinical Impression: Otitis media Qualifiers: Otitis media type: unspecified Laterality: left Qualified Code(s): H66.92 - Otitis media, unspecified, left ear Patient Disposition: Home, Self-Care Condition: Stable Instructions: Antibiotic Form Additional Instructions: Continue to take the azithromycin once daily starting tomorrow since you received your 1st dose here. Continued should oral hydration If you develop any worsening symptoms or any other concerns return to the ER. Patient Language: Chinese Prescriptions: New azithromycin 250 mg tablet 250 mg PO DAILY 4 Days Qty: 4 0RF Rx Instructions: start on day 2 of therapy No Action albuterol sulfate [ProAir HFA] 90 mcg/actuation HFA aerosol inhaler 1 puff inhalation Q4H PRN (Reason: shortness of breath or wheezing) Qty: 8.5 1RF medroxyprogesterone [Depo-Provera] 150 mg/mL suspension 150 mg IM [id number] Qty: 1 3RF sertraline 50 mg tablet 50 mg PO DAILY Qty: 90 3RF Follow-up/Referrals: Julianna Bee MD [Primary Care Provider] - 1 Week Time of Disposition: 10:32
[2025-01-11] MEDS: ACETAMINOPHEN 500 MG TABLET 1000 MG PO (09:44)
[2025-01-11] MEDS: AZITHROMYCIN 250 MG TABLET 500 MG PO (09:44)
[2025-01-11 10:27] LABS: Influenza A QL RT-PCR Negative (Negative); Influenza B QL RT-PCR Negative (Negative); RSV RNA, RT-PCR Negative (Negative); SARS-CoV-2 RNA PCR Negative (Negative)
== END 2025-01-11 10:43 | disposition home or self-care (01) ==
PROVIDERS: Emergency Provider Nurse Practitioner Family; PCP Family Medicine
DX: H66.92 Otitis media, unspecified, left ear (principal); Z20.822 Contact with and (suspected) exposure to COVID-19; J45.909 Unspecified asthma, uncomplicated; E55.9 Vitamin D deficiency, unspecified; E66.9 Obesity, unspecified; Z68.36 Body mass index [BMI] 36.0-36.9, adult; F41.9 Anxiety disorder, unspecified; Z87.891 Personal history of nicotine dependence; Z79.899 Other long term (current) drug therapy
CPT/HCPCS: 87637; 99283; A9270

== ENCOUNTER 2025-01-18 09:00 | Emergency (ER) | payer OTHER, SELFPAY ==
--- NOTE | ~2025-01-18 | XR_ITS ---
EXAMINATION: XR lumbar spine 2-3V DATE: 01/18/2025 09:47 INDICATION: Low back pain TECHNIQUE: Anteroposterior and lateral views of the lumbar spine, and cone-down lateral view of the l umbosacral junction were obtained. COMPARISON: None. FINDINGS: Alignment is normal. Vertebral body and disc heights are normal. Lumbar facet joints and bilateral sa cral joints appear normal. Normal bowel gas pattern. IMPRESSION: 1. Unremarkable lumbar spine radiographs. Reviewed, dictated and finalized at location A. [facility]
--- OUTSIDE RECORDS SUMMARY | 2025-01-18 09:08 | XMS_ITS | Data Portability ---
[facility] [address] [place] [address] Assessment No assessment recorded. Plan of Treatment [...] Updated DateTime 8 167.01 cm 31.5 kg/m2 49282.2 g 97 % 97 % 56 /min 98.2 [degF] 102 mm[Hg] 70 mm[Hg] Victor Hugo Brody MA [facility] 8 14:32:25 Social History Question Answer Notes LastModified by Organizat ion Details LastModified Time Tobacco Smoking Status Current Every Day Smoker cigar Victor Hugo Brody MA null, [facility] 04/21/2018 14:24:41 What Is Your Level Of [...] Recorded Time Tdap 04/21/2018 completed Not Available [facility] 12/16/2019 02:49:14 Past Encounters Encounter ID Performer Location Encounter Start Date Encounter Closed Date Diagnosis/Indication Diagnosis SNOMED-CT Code Diagnosis ICD10 Code Diagnosis Note [id number] Chelita Turner MD [facility] (Adult Med) [address] [place] [address] 04/21/2018 13:59:51 04/26/2018 11:17:10 Adult health examination 859569466 Z00.00 Active or passive immunization 522919597 Z23 Health Concerns Section Related Observation LastModified by Organization Detai ls LastModified Time None Recorded Concern Status LastModified by Organization Details LastModified Time None Recorded Advance Directives Directive None Recorded Payers Encounter Date Sequence Insurance Name Policy Number Policy Ceballos Covered Member ID Ceballos Member ID Guarantor Name 04/21/2018 1 [facility] PRIOR TO 05/29/2021 (MEDICAID REPLACEMENT - HMO) Zeinab Dominique [id number] Zeinab Dominique Notes Date Note Type Note Provider Name and Address Organization Details Recorded Time 04/21/2018 text/html First time, NKDA, wants update Tdap immunization, not sick, no symptomes , not , no fever. Chelita Turner MD Attn: [address] [place], [address], [place] 04/21/2018 14:57:51 OBGyn Episode No OBEpisode recorded.
[2025-01-18 09:12] VITALS: BP 125/86; PULSE 78; RESP 16; TEMP 36.6; O2SAT 100
--- NOTE | 2025-01-18 09:21 | ED.EPISTAXIS ---
HPI - Epistaxis General Chief complaint: Epistaxis Stated complaint: nose bleeds Time Seen by Provider: 01/18/25 09:09 Source: patient Mode of arrival: ambulatory History of Present Illness HPI Narrative: This is a 34 year old female that presents to the ER for multiple complaints. Reports she has been experiencing a lot of nosebleeds. Does report she has been getting over a cold so was blowing her nose a lot. Reports no active bleeding at this time. She additionally reports low back pain that has been ongoing over the last 3 days. No known injury or trauma. She took Tylenol this morning with some improvement. Denies dysuria or hematuria. Related Data Allergies Allergy/AdvReac Type Severity Reaction Status Date / Time amoxicillin AdvReac Mild yeast Verified 01/18/25 09:01 infection Review of Systems Review of Systems: CONSTITUTIONAL: Denies fever GASTROINTESTINAL: Denies abdominal pain GENITOURINARY: Denies dysuria or hematuria. MUSCULOSKELETAL: Reports back pain, joint pain, and myalgia. NEUROLOGIC: Denies numbness, or weakness. 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 Obesity Asthma Shoulder pain Back pain Surgical History Surgical History History of bilateral breast reduction surgery (07/30/20) Family History Family History Son Asthma Sibling Asthma Social History Social History Years smoked: 1 Smoking status: Former smoker Tobacco type: cigars Second hand tobacco smoke exposure: No Smoking end date: 11/29/15 Additional smoking assessment comments: QUIT 2015- SMOKED 1 CIGAR/WEEK Alcohol intake: current Drinks per week: 1 Substance use: current Substance use type: marijuana Other substance usage details: daily Lack of Transportation: No Lack of Food: Never True Current Housing: I Have Housing Concerned About Future Housing: No Difficulty Paying Gas/Electric Bills: No Difficulty Paying for Meds: No Currently Unemployed: No Education: Trade/Vocational Certificate Difficulty w/ Childcare or Family Care: No Living arrangements: alone Additional living arrangements comments: single Occupation/Education: unemployed Gender identity (if verbalized by the patient): Female Sexual Orientation (if Verbalized by the Patient): Straight or Heterosexual Spiritual care concerns: No Agree to blood products: Yes Exam Narrative: GENERAL: Well-appearing, well-nourished, and in no acute distress. HEAD: Normocephalic, atraumatic. EYES: EOMI. ENT: Nares clear, no rhinorrhea or epistaxis. Mucous membranes moist. Oropharynx without tonsillar hypertrophy exudate or other lesions. Bilateral TMs pearly [place] non-bulging NECK: Supple. No adenopathy or masses. CHEST: Clear to auscultation. No respiratory distress. No wheezes rales or rhonchi HEART: Regular rate and rhythm. No murmur heard. Normal peripheral pulses. BACK: No midline spinal tenderness EXTREMITIES: Normal range of motion. No edema. SKIN: Warm, dry, no rash. NEURO: No focal deficits. Alert and oriented x3. Normal gait PSYCH: Normal mood and affect Course Course Emergency Course: Patient updated on workup agrees with plan of care Vital Signs Vital signs: Vital Signs Temperature 97.9 F 01/18/25 09:12 Pulse Rate 78 01/18/25 09:12 Respiratory Rate 16 01/18/25 09:12 Blood Pressure 125/86 01/18/25 09:12 Pulse Oximetry 100 01/18/25 09:12 Temperature 97.9 F 01/18/25 09:12 Pulse Rate 78 01/18/25 09:12 Respiratory Rate 16 01/18/25 09:12 Blood Pressure 125/86 01/18/25 09:12 Pulse Oximetry 100 01/18/25 09:12 MDM - Epistaxis MDM Narrative Medical decision making narrative: Patient presents to the emergency department with multiple complaints. Reporting recent nose bleeds. No active bleeding at this time. Also reporting low back pain. No recent injuries or trauma. Hemoglobin is normal. Metabolic panel with normal kidney function. test is negative. Lumbar spine x-ray without acute abnormalities. Patient updated on her workup and agrees with plan of care. She is to follow up with primary provider. She was given warnings to return the ER Differential Diagnosis Differential diagnosis: Likely anterior epistaxis, posterior epistaxis and other (muscle strain, lumbar spondylosis) Lab Data Attestation: I reviewed the patient's lab results. 01/18/25 09:57 01/18/25 09:57 Labs: Lab Results 01/18/25 01/18/25 Range/Units 09:57 10:00 WBC 4.4 L (4.5-10.0) K/mm3 RBC 4.66 (4.2-5.4) M/mm3 Hgb 13.6 (12.0-15.0) g/dL Hct 40.5 (37.0-47.0) % MCV 86.9 (80-100) fl MCH 29.2 (26-34) pg MCHC 33.6 (32-36) g/dl RDW 13.1 (11.5-14.5) % Plt Count 193 (150-375) k/mm3 MPV 11.0 H (7.4-10.4) fl Immature Gran % (Auto) 0.0 (0-0.5) % Neut % (Auto) 34.2 L (45.5-73.1) % Lymph % (Auto) 60.1 H (18.3-44.2) % [place] % (Auto) 4.8 (2.6-8.5) % Eos % (Auto) 0.7 (0-4.4) % Baso % (Auto) 0.2 (0.2-1.2) % Lymph # (Auto) 2.62 (0.9-3.2) K/mm3 [place] # (Auto) 0.2 (0.1-0.6) K/mm3 Eos # (Auto) 0.0 (0-0.3) K/mm3 Baso # (Auto) 0.0 (0.0-0.1) K/mm3 Abs Immat Gran (auto) 0.00 (0.00-0.031) K/mm3 Absolute Neuts (auto) 1.5 (1.3-6.7) K/mm3 Absolute Nucleated RBC 0.000 (0.0-0.012) K/mm3 Nucleated RBC % 0.0 (0.0-0.2) % Sodium 142 (137-145) mmol/L Potassium 4.0 (3.4-5.0) mmol/L Chloride 105 (98-107) mmol/L Carbon Dioxide 26 (22-30) mmol/L Anion Gap 11 (4-12) mmol/L BUN 12 (7-17) mg/dL Creatinine 0.80 (0.7-1.0) mg/dL Estim Creat Clear Calc 107 ml/min Estimated GFR > 60 (59 - ) Glucose 92 (65-110) mg/dL Calcium 9.2 (8.4-10.2) mg/dL POC Urine HCG, Qual Negative (Negative) Imaging Data Radiologist's impression: ITS Impressions Lumbar Spine X-Ray 01/18/25 09:52 IMPRESSION: 1. Unremarkable lumbar spine radiographs. Critical Care Time Critical Care Time Critical Care Time: No Discharge Plan Discharge Clinical Impression: Epistaxis Low back pain Qualifiers: Chronicity: acute Back pain laterality: midline Sciatica presence: without sciatica Qualified Code(s): M54.50 - Low back pain, unspecified Patient Disposition: Home, Self-Care Condition: Stable Instructions: Nosebleed (ED), Back Pain (ED) Additional Instructions: Return to the ER if you experience weakness, numbness, bowel/bladder incontinence, or any other symptoms that are concerning to you Rest, use ice/heat, take anti-inflammatories (Aleve, Ibuprofen, Naproxen, etc) or Tylenol as needed for pain as well as muscle relaxer (Flexeril) as needed for pain. Muscle relaxers can make you drowsy, do not drive if you take this Follow up with your primary care doctor Patient Language: Uzbek Prescriptions: New cyclobenzaprine 10 mg tablet 10 mg PO TID PRN (Reason: muscle spasm) Qty: 14 0RF No Action albuterol sulfate [ProAir HFA] 90 mcg/actuation HFA aerosol inhaler 1 puff inhalation Q4H PRN (Reason: shortness of breath or wheezing) Qty: 8.5 1RF medroxyprogesterone [Depo-Provera] 150 mg/mL suspension 150 mg IM [id number] Qty: 1 3RF sertraline 50 mg tablet 50 mg PO DAILY Qty: 90 3RF azithromycin 250 mg tablet 250 mg PO DAILY 4 Days Qty: 4 0RF Rx Instructions: start on day 2 of therapy Follow-up/Referrals: Julianna Bee MD [Primary Care Provider] -
[2025-01-18 10:03] LABS: BEDSIDEPREGUCG Negative (Negative)
[2025-01-18 10:04] LABS: Basophils Percent Auto 0.2 % (0.2-1.2); Eosinophils Percent Auto 0.7 % (0-4.4); Hematocrit 40.5 % (37.0-47.0); Hemoglobin 13.6 g/dL (12.0-15.0); Lymphocytes Absolute Auto 2.62 K/mm3 (0.9-3.2); Lymphocytes Percent Auto 60.1 % (18.3-44.2); Mean Corpuscular HGB Conc 33.6 g/dl (32-36); Mean Corpuscular Hemoglobin 29.2 pg (26-34); Mean Corpuscular Volume 86.9 fl (80-100); Monocytes Absolute Auto 0.2 K/mm3 (0.1-0.6); Monocytes Percent Auto 4.8 % (2.6-8.5); Neutrophils Absolute Auto 1.5 K/mm3 (1.3-6.7); Neutrophils Percent Auto 34.2 % (45.5-73.1); Platelet Count Result 193 k/mm3 (150-375); Red Blood Count 4.66 M/mm3 (4.2-5.4); Red Cell Distribution Width 13.1 % (11.5-14.5); White Blood Count 4.4 K/mm3 (4.5-10.0)
[2025-01-18 10:12] LABS: Anion Gap 11 mmol/L (4-12); Blood Urea Nitrogen 12 mg/dL (7-17); Calcium 9.2 mg/dL (8.4-10.2); Carbon Dioxide 26 mmol/L (22-30); Chloride 105 mmol/L (98-107); Estimated CRCL calculation 107 ml/min; Estimated Glomerular Filt Rate > 60; Glucose 92 mg/dL (65-110); Sodium 142 mmol/L (137-145)
== END 2025-01-18 10:41 | disposition home or self-care (01) ==
PROVIDERS: Emergency Provider Physician Assistant; PCP Family Medicine
DX: R04.0 Epistaxis (principal); M54.50 Low back pain, unspecified; J45.909 Unspecified asthma, uncomplicated; E66.9 Obesity, unspecified; Z68.34 Body mass index [BMI] 34.0-34.9, adult; E55.9 Vitamin D deficiency, unspecified; Z87.891 Personal history of nicotine dependence
CPT/HCPCS: 36415; 72100; 80048; 81025; 85025; 99283